=== PATIENT | male | born 1955 | race Caucasian/White ===

== ENCOUNTER 2019-08-05 16:24 | Outpatient (CLI) | payer OTHER, SELFPAY | END 2019-08-05 16:25 | disposition home or self-care (01) | LOC: CHSLAB 16:28 | PROVIDERS: PCP Family Medicine; Visit Provider Specialist | DX: L73.9 Follicular disorder, unspecified (principal) | CPT/HCPCS: 87070; 87075; 87205 ==

== ENCOUNTER 2019-09-23 14:37 | Outpatient (CLI) | payer OTHER, SELFPAY | END 2019-09-23 14:38 | disposition home or self-care (01) | LOC: CHSLAB 14:40 | PROVIDERS: PCP Family Medicine; Visit Provider Specialist | DX: D22.5 Melanocytic nevi of trunk (principal) | CPT/HCPCS: 88305; 88342 ==

== ENCOUNTER → 2020-07-27 02:14 | Outpatient (CLI) | payer OTHER, SELFPAY ==
[2020-07-27 22:46] LABS: SARS-CoV-2 RNA PCR Negative
== END ==
PROVIDERS: PCP Family Medicine; Visit Provider Internal Medicine Gastroenterology
DX: Z01.812 Encounter for preprocedural laboratory examination (principal); Z20.822 Contact with and (suspected) exposure to COVID-19
CPT/HCPCS: C9803; U0003; U0005

== ENCOUNTER 2020-07-30 00:48 | Day surgery (SDC) | payer OTHER, SELFPAY ==
[2020-07-20 08:45] VITALS: BMI 37.2
[2020-07-30 08:03] VITALS: BP 160/89; PULSE 77; RESP 18; TEMP 36.2; O2SAT 98; BMI 47.2
[2020-07-30] MEDS: LACTATED RINGERS 1,000 ML 150 ML IV CONT (08:13)
--- NOTE | 2020-07-30 08:18 | WPDANESEPPF ---
Anes - Initial Pre Proc Eval Procedure: Operation Date: 07/30/20 09:30 Proposed Procedures p Screening Colonoscopy - Tonny Norwood MD Date/Time: 07/30/20 08:18 Surgeon: Tonny Norwood MD Pre Op Diagnosis: Neoplasm Screening, Personal Hx Of Colon Polyps Patient Data Age: 65 Gender: M Height: 6 ft 1 in Weight: 162.3 kg Last Vital Signs Temp 36.2 C L 07/30/20 08:03 Pulse 77 07/30/20 08:03 Resp 18 07/30/20 08:03 BP 160/89 H 07/30/20 08:03 Pulse Ox 98 07/30/20 08:03 Allergies Allergy/AdvReac Type Severity Reaction Status Date / Time Penicillins Allergy Severe RASH, Verified 07/30/20 08:01 SWELLING adhesive Allergy Unknown SKIN RASH/ Verified 07/30/20 08:01 BREAKDOWN bacitracin AdvReac Rash Verified 07/30/20 08:01 [From Neosporin ([id number])] neomycin AdvReac Rash Verified 07/30/20 08:01 [From Neosporin ([id number])] polymyxin B AdvReac Rash Verified 07/30/20 08:01 [From Neosporin ([id number])] Home Medications Medication Instructions Recorded Confirmed Type sertraline 100 mg tablet 150 mg PO DAILY #45 tablet 04/30/19 07/20/20 Rx bupropion HCl 150 mg 24 hr tablet, 300 mg PO QAM tablet 07/09/19 07/20/20 History extended release pravastatin 40 mg tablet 40 mg PO DAILY #90 tablet 05/05/20 07/20/20 Rx sodium,potassium,mag sulfates 17.5 See Rx Instructions PO .COMPLEX 07/02/20 Rx gram-3.13 gram-1.6 gram oral soln #354 ml lisinopril 20 mg tablet 20 mg PO DAILY #90 tablet 07/27/20 07/27/20 Rx Patient hx anesthesia problems: none Family hx anesthesia problems: none PMFSH Past Medical History Medical History Atypical chest pain Benign essential HTN Diverticulosis of colon (without mention of hemorrhage) Hyperlipidemia MDD (major depressive disorder) KERI (obstructive sleep apnea) Family History Family History Mother Family history of lung cancer Social History Social History Smoking status: Never smoker Alcohol intake: current Drinks per week: 6 Substance use: never Substance use type: does not use Living arrangements: with family Gender identity (if verbalized by the patient): Male Spiritual care concerns: No Anes - Eval Final PreProcedure Day of Procedure 07/30/20 08:18 Patient weight: morbidly obese Heart: regular rate and rhythm Lungs: clear to auscultation Airway: Mallampati scale class II Neurological: alert and oriented Last oral intake: >/= 8 hours ASA classification: III Emergent: no Anesthetic plan: proceed Anesthesia type and monitoring: general GIVS and standard monitoring Informed Consent: The patient's anesthetic plan and its attendant risks and benefits were discussed with the patient/family/POA. Questions were solicited and answers provided to the satisfaction of the patient/family/POA.
--- NOTE | 2020-07-30 09:08 | PM.HPGS ---
History of Present Illness History of Present Illness Consent: Risks, benefits, and alternatives have been discussed and questions answered. Patient agrees to proceed with procedure. Chief complaint: Neoplasm Screening, Personal Hx Of Colon Polyps Narrative: Indra Coppola is a 65 year old male with history of colon polyps, no new issues now Review of Systems Constitutional: Constitutional: Denies headache(s) and Denies weakness Eyes: Eyes: Denies blurry vision ENT: Reports Normal hearing present, Denies headache(s) and Denies neck pain Cardiovascular: Cardiovascular: Denies chest pain and Denies dyspnea Respiratory: Respiratory: Denies dyspnea Gastrointestinal: Gastrointestinal: Reports no additional gastrointestinal complaints Genitourinary: Genitourinary: Denies dysuria Musculoskeletal: Musculoskeletal: Denies neck pain Integumentary/Breasts: Skin/Breast: Denies dry skin Neurologic: Reports Normal hearing present, Denies headache(s) and Denies weakness Psychiatric: Psychiatric: Denies anxiety Endocrine: Endocrine: Denies change in body appearance Hematologic/Lymphatic: Hematologic/Lymphatic: Denies easy bleeding Allergic/Immunologic: Allergic/Immunologic: Denies urticaria PMFSH Past Medical History Medical History Atypical chest pain Benign essential HTN Diverticulosis of colon (without mention of hemorrhage) Hyperlipidemia MDD (major depressive disorder) KERI (obstructive sleep apnea) Family History Family History Mother Family history of lung cancer Social History Social History Smoking status: Never smoker Alcohol intake: current Drinks per week: 6 Substance use: never Substance use type: does not use Living arrangements: with family Gender identity (if verbalized by the patient): Male Spiritual care concerns: No Meds Home Medications and Allergies Home Medications Medication Instructions Recorded Confirmed Type sertraline 100 mg tablet 150 mg PO DAILY #45 tablet 04/30/19 07/20/20 Rx bupropion HCl 150 mg 24 hr tablet, 300 mg PO QAM tablet 07/09/19 07/20/20 History extended release pravastatin 40 mg tablet 40 mg PO DAILY #90 tablet 05/05/20 07/20/20 Rx sodium,potassium,mag sulfates 17.5 See Rx Instructions PO .COMPLEX 07/02/20 Rx gram-3.13 gram-1.6 gram oral soln #354 ml lisinopril 20 mg tablet 20 mg PO DAILY #90 tablet 07/27/20 07/27/20 Rx Allergies Allergy/AdvReac Type Severity Reaction Status Date / Time Penicillins Allergy Severe RASH, Verified 07/30/20 08:01 SWELLING adhesive Allergy Unknown SKIN RASH/ Verified 07/30/20 08:01 BREAKDOWN bacitracin AdvReac Rash Verified 07/30/20 08:01 [From Neosporin ([id number])] neomycin AdvReac Rash Verified 07/30/20 08:01 [From Neosporin ([id number])] polymyxin B AdvReac Rash Verified 07/30/20 08:01 [From Neosporin ([id number]-[id number])] Vital Signs Vital Signs - 24 hr 07/30/20 08:03 Temperature 97.2 F L Pulse Rate 77 Respiratory Rate 18 Blood Pressure 160/89 H Pulse Oximetry 98 Exam Const: General: comfortable and no acute distress HENMT: General nose exam: Normal nares present Eyes: General: appearance normal, both eyes and all related structures Neck: Neck: no JVD Resp: Auscultation: clear to auscultation bilaterally Cardio: Rate: regular rate Rhythm: regular rhythm GI: Inspection: non-distended GI Palp: Yes Soft to palpation Skin: General skin exam: normal color Neuro: General: gait normal Speech: normal speech Extrem: General: normal to inspection Psych: Mental Status: mental status grossly normal Assessment and Plan Assessment and plan (1) Colon cancer screening: Code(s): Z12.11 - Encounter for screening for malignant neoplasm of colon
[2020-07-30 09:31] VITALS: BP 126/86; PULSE 66; RESP 19; O2SAT 98
[2020-07-30 09:41] VITALS: BP 129/88; PULSE 76; RESP 19; O2SAT 98
[2020-07-30 09:51] VITALS: BP 139/91; PULSE 64; RESP 13; O2SAT 100
== END 2020-07-30 09:51 | disposition home or self-care (01) ==
PROVIDERS: PCP Family Medicine; Visit Provider Internal Medicine Gastroenterology
PROC: 0DJD8ZZ Inspection of Lower Intestinal Tract, Via Natural or Artificial Opening Endoscopic (ICD-10-PCS; CPT 45378; principal; 2020-07-30 09:30)
DX: Z12.11 Encounter for screening for malignant neoplasm of colon (principal); D12.2 Benign neoplasm of ascending colon; K57.30 Diverticulosis of large intestine without perforation or abscess without bleeding; I10 Essential (primary) hypertension; E78.5 Hyperlipidemia, unspecified; G47.33 Obstructive sleep apnea (adult) (pediatric); F32.9 Major depressive disorder, single episode, unspecified; E66.01 Morbid (severe) obesity due to excess calories; Z68.42 Body mass index [BMI] 45.0-49.9, adult
CPT/HCPCS: 45385; 88305; C9803; J2704; J7120; U0003; U0005

== ENCOUNTER → 2020-11-30 08:24 | Outpatient (CLI) | payer OTHER, SELFPAY ==
--- NOTE | ~2020-11-30 | XR_ITS ---
XR chest 2V DATE: 11/30/2020 08:35 INDICATION: Cough TECHNIQUE: 2 views COMPARISON: 07/13/2017 two-view chest FINDINGS: Normal heart size. There is left upper lobe infiltrate and/atelectasis. There is increased density at the left suprahila r area which may represent infiltrate; left hilar mass or adenopathy is not excluded. Continued radio graphic follow-up to ensure complete clearing is recommended There is some patchy infiltrate or atelectasis in the left lower lung and to a lesser extent the righ t lung base. No pleural effusion or pulmonary vascular congestion or pneumothorax. Degenerative spurring of the thoracic spine. No suspicious osteolytic or osteoblastic lesions are anatoly ntified. IMPRESSION: Left upper and lower lung infiltrate and/or atelectasis and lesser right basilar atelecta sis. Continued radiographic follow-up is recommended to ensure complete clearing. Reviewed, dictated and finalized at location B. IMPRESSION: Left upper and lower lung infiltrate and/or atelectasis and lesser right basilar atelectasis. Continued radiographic follow-up is recommended to e nsure complete clearing.
== END ==
PROVIDERS: PCP Family Medicine; Visit Provider Physician Assistant
DX: R05 Cough (principal); R91.8 Other nonspecific abnormal finding of lung field
CPT/HCPCS: 71046

== ENCOUNTER → 2020-12-10 12:27 | Outpatient (CLI) | payer OTHER, SELFPAY ==
--- NOTE | ~2020-12-10 | CT_ITS ---
EXAMINATION: CT diagnostic chest wo con EXAM DATE: 12/10/2020 13:12 INDICATION: R05 - Cough, abnormal cxr . TECHNIQUE: Spiral CT of the chest without contrast. Axial, coronal and sagittal images of the chest were reviewed. Coronal maximum intensity pixel images of chest reviewed. The dose-length product ( DLP) for this examination was 790.53 mGy-cm. The exposure was tailored according to patient size (au to mA exposure control), and iterative reconstruction (ASIR) was used as additional dose reduction te chnique. Correlation is made to chest x-ray 11/30/2020. FINDINGS: There is right suprahilar mass measuring up to about 3.7 cm. This is occluding the left up per lobe bronchus. Consider pulmonary consult for bronchoscopy. There are no pleural or pericardial effusions. There is no mediastinal, hilar or axillary lymphadenopathy. There is no pneumothorax . Heart normal in size. There is mild coronary arterial calcification, arterial sclerosis. There is 2.5 cm left adrenal gland nodule statistically most likely adenoma. Metastatic disease not exclud able. Cholecystectomy clips. Moderate-sized mid thoracic endplate osteophytes. IMPRESSION: 1. Left suprahilar mass, occluding the upper lobe bronchus likely bronchogenic carcinoma; pulmonary consult for bronchoscopy, biopsy. 2. Indeterminate left adrenal lesion, statistically most likely adenoma. Reviewed, dictated and finalized at location A.
== END ==
PROVIDERS: PCP Family Medicine; Visit Provider Physician Assistant
DX: R05 Cough (principal); R93.89 Abnormal findings on diagnostic imaging of other specified body structures; N28.89 Other specified disorders of kidney and ureter
CPT/HCPCS: 71250

== ENCOUNTER → 2021-01-01 01:08 | Outpatient (CLI) | payer OTHER, SELFPAY ==
[2021-01-01 17:52] LABS: SARS-CoV-2 RNA PCR Negative
== END ==
PROVIDERS: PCP Family Medicine; Visit Provider Internal Medicine Pulmonary Disease
DX: Z01.812 Encounter for preprocedural laboratory examination (principal); Z20.822 Contact with and (suspected) exposure to COVID-19
CPT/HCPCS: C9803; U0003; U0005

== ENCOUNTER 2021-01-04 02:03 | Day surgery (SDC) | payer OTHER, SELFPAY ==
[2020-12-27 14:01] VITALS: BMI 41.6
[2021-01-04] VITALS (8 sets, daily range): BP systolic 117–188; BP diastolic 74–107; PULSE 72–98; RESP 18–30; TEMP 36.2; O2SAT 94–98
--- NOTE | ~2021-01-04 | XR_ITS ---
EXAMINATION: XR fl bronchoscopy w imaging DATE: 01/04/2021 14:20 INDICATION: Bronchoscopy with left upper lobe biopsy TECHNIQUE: Single fluoroscopic image of the left mid and upper chest was obtained during procedure pe rformed by Dr. Stoner. Radiologist was not present for the imaging or procedure. The amount of fluoro scopy time used during this procedure was 0.6 minutes. COMPARISON: CT dated 12/10/2020 FINDINGS: Oblique band of likely postobstructive atelectasis/or pneumonia peripheral to a left perihilar mass w hich is suspicious for primary bronchogenic carcinoma. No evident pneumothorax. Visualized portion of the mediastinum and left heart border are unremarkable. IMPRESSION: 1. Fluoroscopy utilized for bronchoscopy with left hilar mass concerning for primary bronchogenic car cinoma. See procedure note for further detail. Reviewed, dictated and finalized at location A. IMPRESSION: 1. Fluoroscopy utilized for bronchoscopy with left hilar mass concerning for pr imary bronchogenic carcinoma. See procedure note for further detail.
--- NOTE | ~2021-01-04 | XR_ITS ---
EXAMINATION: XR chest 1V portable DATE: 01/04/2021 14:20 INDICATION: Post bronchoscopy TECHNIQUE: frontal view of the chest was obtained. COMPARISON: Chest radiograph dated 11/30/[address] dated 12/10/2020 FINDINGS: Unchanged opacities in the left upper lung zone extending obliquely from a left perihilar mass. No pl eural effusion or pneumothorax. The cardiomediastinal silhouette is normal. Mild thoracic spondylosis . IMPRESSION: 1. Opacities in the left upper lung zone extending to a left perihilar mass suspicious for primary br onchogenic carcinoma and atelectasis and/or pneumonia. 2. No pneumothorax, pleural effusion or other acute cardiopulmonary disease post bronchoscopy. Reviewed, dictated and finalized at location A. IMPRESSION: 1. Opacities in the left upper lung zone extending to a left perihilar mass stone picious for primary bronchogenic carcinoma and atelectasis and/or pneumonia. 2. No pneumothorax, pleural effusion or other acute cardiopulmonary disease pos t bronchoscopy.
[2021-01-04 11:56] LABS: Basophils Absolute Auto 0.1 K/mm3 (0.0-0.1); Basophils Percent Auto 1.4 % (0.2-1.2); Eosinophils Absolute Auto 0.3 K/mm3 (0-0.3); Eosinophils Percent Auto 3.6 % (0-4.4); Hematocrit 54.6 % (42.0-52.0); Hemoglobin 17.8 g/dL (14.0-18.0); Immature Granulocyte Absolute 0.16 K/mm3 (0.00-0.031); Lymphocytes Absolute Auto 1.39 K/mm3 (0.9-3.2); Lymphocytes Percent Auto 17.2 % (18.3-44.2); Mean Corpuscular HGB Conc 32.6 g/dl (32-36); Mean Corpuscular Hemoglobin 28.1 pg (26-34); Mean Corpuscular Volume 86.3 fl (80-100); Mean Platelet Volume 8.5 fl (7.4-10.4); Monocytes Absolute Auto 0.7 K/mm3 (0.1-0.6); Monocytes Percent Auto 8.7 % (2.6-8.5); Neutrophils Absolute Auto 5.4 K/mm3 (1.3-6.7); Neutrophils Percent Auto 67.1 % (45.5-73.1); Platelet Count Result 309 k/mm3 (150-375); Red Blood Count 6.33 M/mm3 (4.6-6.20); Red Cell Distribution Width 14.8 % (11.5-14.5); White Blood Count 8.1 K/mm3 (4.5-10.0)
[2021-01-04] MEDS: LACTATED RINGERS 1,000 ML 150 ML IV CONT (11:56)
[2021-01-04 12:17] LABS: INR 0.9; Partial Thromboplastin Time 32.2 SECONDS (22.3-36.8); Prothrombin Time 12.1 Seconds (11.1-14.7)
--- NOTE | 2021-01-04 12:39 | WPDANESEPPF ---
Anes - Initial Pre Proc Eval Procedure: Operation Date: 01/04/21 13:15 Proposed Procedures p Flexible Bronchoscopy w Fluoro - Francesco Stoner MD Date/Time: 01/04/21 12:39 Surgeon: Francesco Stoner MD Pre Op Diagnosis: Left Lung Mass Patient Data Age: 65 Gender: M Height: 1.85 m Weight: 141.2 kg Last Vital Signs Temp 97.1 F L 01/04/21 11:53 Pulse 90 01/04/21 11:53 Resp 20 01/04/21 11:53 BP 173/89 H 01/04/21 11:53 Pulse Ox 98 01/04/21 11:53 Allergies Allergy/AdvReac Type Severity Reaction Status Date / Time Penicillins Allergy Severe RASH, Verified 01/04/21 11:52 SWELLING adhesive Allergy Unknown SKIN RASH/ Verified 01/04/21 11:52 BREAKDOWN bacitracin AdvReac Rash Verified 01/04/21 11:52 [From Neosporin ([id number])] neomycin AdvReac Rash Verified 01/04/21 11:52 [From Neosporin ([id number])] polymyxin B AdvReac Rash Verified 01/04/21 11:52 [From Neosporin ([id number])] Home Medications Medication Instructions Recorded Confirmed Type sertraline 100 mg tablet 150 mg PO DAILY #45 tablet 04/30/19 12/27/20 Rx bupropion HCl 150 mg 24 hr tablet, 300 mg PO QAM tablet 07/09/19 12/27/20 History extended release pravastatin 40 mg tablet 40 mg PO DAILY #90 tablet 05/05/20 12/27/20 Rx testosterone cypionate 200 mg/mL 200 mg IM .COMPLEX #10 ml 10/07/20 12/27/20 Rx intramuscular oil amlodipine 5 mg tablet 5 mg PO DAILY #30 tablet 11/30/20 12/27/20 Rx lisinopril 40 mg tablet 40 mg PO DAILY #90 tablet 12/03/20 12/27/20 Rx doxycycline hyclate 100 mg tablet 100 mg PO BID #14 tablet 12/28/20 01/04/21 Rx Laboratory Tests 01/04/21 01/04/21 01/04/21 11:43 11:43 11:43 WBC 8.1 K/mm3 K/mm3 (4.5-10.0) RBC 6.33 M/mm3 H M/mm3 (4.6-6.20) Hgb 17.8 g/dL g/dL (14.0-18.0) Hct 54.6 % H % (42.0-52.0) MCV 86.3 fl fl (80-100) MCH 28.1 pg pg (26-34) MCHC 32.6 g/dl g/dl (32-36) RDW 14.8 % H % (11.5-14.5) Plt Count 309 k/mm3 k/mm3 (150-375) MPV 8.5 fl fl (7.4-10.4) Immature Gran % (Auto) 2.0 % H % (0-0.5) Neut % (Auto) 67.1 % % (45.5-73.1) Lymph % (Auto) 17.2 % L % (18.3-44.2) [place] % (Auto) 8.7 % H % (2.6-8.5) Eos % (Auto) 3.6 % % (0-4.4) Baso % (Auto) 1.4 % H % (0.2-1.2) Lymph # (Auto) 1.39 K/mm3 K/mm3 (0.9-3.2) [place] # (Auto) 0.7 K/mm3 H K/mm3 (0.1-0.6) Eos # (Auto) 0.3 K/mm3 K/mm3 (0-0.3) Baso # (Auto) 0.1 K/mm3 K/mm3 (0.0-0.1) Abs Immat Gran (auto) 0.16 K/mm3 H K/mm3 (0.00-0.031) Absolute Neuts (auto) 5.4 K/mm3 K/mm3 (1.3-6.7) Absolute Nucleated RBC 0.0 K/mm3 K/mm3 (0.0-0.012) Nucleated RBC % 0.0 % % (0.0-0.2) PT 12.1 Seconds Seconds (11.1-14.7) INR 0.9 APTT 32.2 SECONDS SECONDS (22.3-36.8) Sodium Pending Potassium Pending Chloride Pending Carbon Dioxide Pending Anion Gap Pending BUN Pending Creatinine Pending Estim Creat Clear Calc Pending Estimated GFR Pending Glucose Pending Calcium Pending Total Bilirubin Pending AST Pending ALT Pending Alkaline Phosphatase Pending Total Protein Pending Albumin Pending Patient hx anesthesia problems: none Family hx anesthesia problems: none PMFSH Past Medical History Medical History (Reviewed 12/22/20 @ 15:01 by Jovita Jackson [facility]) Atypical chest pain Benign essential HTN Colon cancer screening Diverticulosis of colon (without mention of hemorrhage) Hyperlipidemia MDD (major depressive disorder) KERI (obstructive sleep apnea) Family History Family History (Reviewed 12/22/20
[2021-01-04 12:45] LABS: Alanine Aminotransferase 42 U/L (4-50); Albumin Level 4.7 g/dL (3.5-5.1); Alkaline Phosphatase 81 U/L (38-126); Anion Gap 9 mmol/L (8-16); Aspartate Amino Transferase 40 U/L (17-59); Bilirubin,Total 0.8 mg/dL (0.2-1.3); Blood Urea Nitrogen 19 mg/dL (9-20); Calcium 9.6 mg/dL (8.4-10.2); Carbon Dioxide 25 mmol/L (22-30); Chloride 105 mmol/L (98-107); Estimated CRCL calculation 107 ml/min; Estimated Glomerular Filt Rate > 60; Glucose 113 mg/dL (65-110); Potassium 4.2 mmol/L (3.4-5.0); Sodium 139 mmol/L (137-145)
--- NOTE | 2021-01-04 13:11 | PM.IMHP ---
H&P: HPI History of Present Illness Date/Time: 01/04/21 13:11 Chief Complaint: bronchoscopy for left lung mass Narrative: 01/04/21 Patient presents today for bronchoscopy for left lung mass. Since office visit on 12/22/2020 patient has had some cough and congestion and was started on doxycycline 100 mg p.o. b.i.d. by his primary physician. Patient currently denies fever, chills, rigors, phlegm production. Patient does notice some audible wheezes. Risks and benefits of bronchoscopy were explained again explained to the patient and he is willing to proceed. 12/22/20 this is a new encounter for a left lung mass Patient saw Ines Mon on 11/30/20 and her note states Pt w/ HTN, HLD, IFG, low testosterone, LUKAS, KERI not on CPAP presents for 6 week f/u . Taking medications as prescribed, denies S/E. Pt is following w/ psych. At last appt, BP was slightly elevated. Has not been checking home BP. Pt had previously lost weight. During COVID-19 pandemic, pt gained weight back. Pt had been off CPAP therapy > 1 year. Pt is not interested in repeating HSS at this time. C/o cough x 2 months. At last appt, pt was treated w/ Z-son and Medrol dose son w/o improvement. Endorses chronic nasal/sinus congestion and PND. Endorses new body aches (bilateral hand stiffness). Denies SOB, fever, fatigue, loss of taste or smell, no known COVID-19 exposure. Pt has not been vaccinated for COVID-19. Pt had COVID-19 Jan 2019. Pt has not tried any OTC medications. A chest x-ray was obtained on 11/30/2020 that demonstrated a left upper and mid lung zone infiltrate. A CT scan of the chest was obtained on 12/10 that showed a left suprahilar mass at 3.7 cm. There were no mediastinal hilar OR or axillary lymphadenopathy there is a 2.5 cm left adrenal gland nodule. Patient was referred to Pulmonary. Today the patient tells me that At the time of his chest x-ray he was having some wheezing and rattling in cough but denied fever, chills, sweats or rigors. He denied chest pain at the time. He was given a Z-Son and Medrol taper which provided him minimal relief. He Currentlyhas had a cough that has gotten worse over the last 6 months. He coughs throughout the day 1-2 times an hour for the most part it is dry. Patient denies hemoptysis. Patient does state that sometimes he coughs after drinking fluids. 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 patient has no weight loss. Patient is a never tobacco smoker. Patient was exposed to secondhand smoke through both parents. Patient currently has no secondhand smoke exposure. 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 Of note patient has obstructive sleep apnea diagnosed within a sleep study and prescribe CPAP which she used briefly. Patient lost 100 lb and his tells me that his symptoms went away. He has not used CPAP for 3 or 4 years. Patient has regained the 100 lb and he does have some apneic episodes in which the needs to wake him up. The patient states he is not interested in performing another sleep study and would not wear CPAP mask. Family history is remarkable for a mother who of metastatic lung cancer at the age of 64. She was a tobacco user. Review of Systems Review of Systems: All systems reviewed & are unremarkable except as noted in HPI and below Eyes: Eyes: Reports no additional eye complaints ENT: Reports system reviewed and no additional complaints, except as documented Cardiovascular: Cardiovascular: Reports no additional cardiovascular complaints Respiratory: Respiratory: Reports no additional respiratory complain
[2021-01-04] MEDS: SODIUM CHLORIDE 0.9% IV 500 ML BAG 15 ML IRRIGATION (13:51)
== END 2021-01-04 15:25 | disposition home or self-care (01) ==
PROVIDERS: PCP Family Medicine; Visit Provider Internal Medicine Pulmonary Disease
PROC: BB1DZZZ Fluoroscopy of Upper Airways (ICD-10-PCS; CPT 31624; principal; 2021-01-04 13:00)
DX: R91.8 Other nonspecific abnormal finding of lung field (principal); R05 Cough; I10 Essential (primary) hypertension; E78.5 Hyperlipidemia, unspecified; F32.9 Major depressive disorder, single episode, unspecified; K57.30 Diverticulosis of large intestine without perforation or abscess without bleeding; G47.33 Obstructive sleep apnea (adult) (pediatric); Z77.22 Contact with and (suspected) exposure to environmental tobacco smoke (acute) (chronic)
CPT/HCPCS: 31625; 31623; 36415; 71045; 80053; 85025; 85610; 85730; 88104; 88108; 88160; 88184; 88305; 88312; C9803; J0330; J1100; J2405; J2704; J3010; J7040; J7120; U0003; U0005

== ENCOUNTER → 2021-01-27 15:33 | Outpatient (CLI) | payer OTHER, SELFPAY ==
--- NOTE | ~2021-01-27 | XR_ITS ---
XR chest 2V 01/27/2021 16:11 Indication: Cough and shortness of breath Procedure: The chest Comparison: 01/04/2021 Findings: Persistent left perihilar and left upper lobe airspace disease. Heart size normal. Left hil ar mass reidentified. No pleural effusion or pneumothorax. No acute osseous abnormality. Impression: 1: Left hilar mass, suspicious for bronchogenic carcinoma. Left upper lobe airspace disease may repre sent postobstructive atelectasis or pneumonia. Reviewed, dictated and finalized at location A. Impression: 1: Left hilar mass, suspicious for bronchogenic carcinoma. Left upper lobe airs pace disease may represent postobstructive atelectasis or pneumonia.
== END ==
PROVIDERS: PCP Family Medicine; Visit Provider Physician Assistant
DX: R91.8 Other nonspecific abnormal finding of lung field (principal)
CPT/HCPCS: 71046

== ENCOUNTER 2021-03-03 23:19 | Inpatient (IN) | payer OTHER, SELFPAY ==
--- NOTE | ~2021-03-03 | CT_ITS ---
EXAMINATION: CTA chest PE protocol DATE: 03/04/2021 11:41 INDICATION: New onset of atrial flutter. Pneumothorax. TECHNIQUE: Computed tomography angiography (CTA) of the chest was performed with 100 mL Omnipaque-350 intravenous contrast timed to evaluate the pulmonary arteries. Coronal maximum intensity projection 3D-reconstructions were created by the technologist. Automated exposure control and iterative reconst ruction technique were employed. Exam dose: 1074.44 mGy-cm total exam DLP. COMPARISON: 03/02/2021 portable AP chest 12/10/2020 CT chest: Left suprahilar mass, including left upper bronchus was noted FINDINGS: Status post partial left lung resection with some residual free air in the left thoracic ca vity and mild left pleural effusion. There are some shoddy nonenlarged hilar and mediastinal lymph nodes. No thoracic aortic aneurysm. Normal heart size. No pericardial effusion. The lungs are clear of consolidation or mass lesion. 2.5 cm left adrenal mass lesion. Diffusion diagnosis includes left adrenal metastasis an adenoma. Status post cholecystectomy. No suspicious osteolytic or osteosclerotic lesions. 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 Diffuse idiopathic skeletal hyperostosis. IMPRESSION: Status post left lung resection for cancer Mild left postoperative pneumothorax Mild left pleural fluid Reviewed, dictated and finalized at [facility]. Reviewed, dictated and finalized at [facility].
--- NOTE | ~2021-03-03 | XR_ITS ---
XR chest 1V portable DATE: 03/04/2021 00:05 INDICATION: Chest pain, palpitations. Lung surgery 2 weeks ago. TECHNIQUE: Portable upright AP chest on 03/04/2021 at 0003 hours COMPARISON: 01/27/2021 PA and lateral views FINDINGS: There is a small left pneumothorax. There is volume loss of the left lung since 01/27/2021, likely due to partial left lung resection. Ther e is associated mild elevation left leaf of the diaphragm. The right lung appears essentially clear. No pleural effusions are noted. No right pneumothorax. Heart size appears within normal range. IMPRESSION: Small left pneumothorax Reviewed, dictated and finalized at [facility]. IMPRESSION: Small left pneumothorax
--- NOTE | ~2021-03-03 | CT_ITS ---
EXAMINATION: CT abdomen pelvis wo con DATE: 03/05/2021 11:53 INDICATION: Epigastric pain TECHNIQUE: Computed tomography (CT) of the abdomen and pelvis was performed without intravenous contr ast. The dose-length product was 1627.29 mGy-cm. Automated exposure control and iterative reconstruct ion technique were employed. COMPARISON: CT dated 03/03/2017 FINDINGS: Small left pleural effusion. Heart size normal. There is mild atherosclerosis of the aorta. No significant pericardial effusion. Stable 2.7 cm low-density left adrenal mass, likely benign kendell cleopatra. Status post cholecystectomy. The liver, spleen, pancreas, right adrenal gland are unremarkable. There are bilateral renal cysts, largest anteriorly in the right kidney measuring 7 5 cm. Nonobstruct lois bowel gas pattern. Colonic diverticulosis without evidence for diverticulitis. There is mild arth ritis of the hips. No acute osseous abnormality. No free air or free fluid. No abnormal pelvic masses or fluid collections. Colonic diverticulosis without evidence for diverticulitis. There is moderate lumbar spondylosis. IMPRESSION: 1. No acute abdominal abnormality. 2: Stable left adrenal mass, likely benign adenoma. 3: New small left pleural effusion. Reviewed, dictated and finalized at location [facility].
[2021-03-03 23:21] VITALS: BP 134/87; PULSE 77; RESP 18; TEMP 35.9; O2SAT 98
--- NOTE | 2021-03-03 23:26 | ECG_ITS ---
Measurements Intervals [place] Rate: 156 P: DE: 0 QRS: 3 QRSD: 102 T: 139 QT: 256 QTc: 413 Interpretive Statements ATRIAL FLUTTER/TACHYCARDIA WITH RAPID VENTRICULAR RESPONSE LEFT VENTRICULAR HYPERTROPHY AND ST-T CHANGE ABNORMAL ECG Electronically Signed On 03-04-2021 7:44:35 CDT by Noe Miller D.O.
--- NOTE | 2021-03-03 23:28 | PC.NURSE ---
requesting to be notified when pt goes back to ED room. Patricia [phone].
[2021-03-03] MEDS: ADENOSINE IV SOLN 6 MG/2 ML VIAL IV PUSH (23:48)
--- NOTE | 2021-03-03 23:53 | PC.NURSE ---
EDP at bedside. Pt attached to pvc monitor and defibrillator pads. Pt given 6mg adenosine with 1 L NS running wide open. HR dropped to 30s in aflutter then returned to 160s. Pt tolerated well.
--- NOTE | 2021-03-03 23:57 | ED.GENADULT ---
HPI - General Adult General Chief complaint: Arrhythmia/Palpitations Stated complaint: heart racing, cold clammy sweat Time Seen by Provider: 03/03/21 23:37 History of Present Illness HPI narrative: Patient 65-year-old gentleman who presents to emergency department with chief complaint of palpitations and shortness of breath. Patient reports that he recently had a pneumonectomy for lung cancer at [place] patient states that he has been doing quite well and then today started having shortness of breath had some chest tightness and felt as though his heart was racing extremely fast. Patient reports no prior history of A. fib or history of SVT. Patient reports symptoms are worsened with ambulation and improved with rest. The patient states that the palpitations continue to matter what. Related Data Home Medications Medication Instructions Recorded Confirmed oxycodone 03/04/21 Allergies Allergy/AdvReac Type Severity Reaction Status Date / Time Penicillins Allergy Severe RASH, Verified 03/04/21 00:05 SWELLING adhesive Allergy Unknown SKIN RASH/ Verified 03/04/21 00:05 BREAKDOWN bacitracin AdvReac Rash Verified 03/04/21 00:05 [From Neosporin ([id number])] neomycin AdvReac Rash Verified 03/04/21 00:05 [From Neosporin ([id number])] polymyxin B AdvReac Rash Verified 03/04/21 00:05 [From Neosporin ([id number])] Review of Systems Review of Systems: A 10 system review of systems was completed on the patient and is negative except for what is stated in the HPI. Nursing and ancillary documentation was reviewed. [facility], [facility] Past Medical History Medical History Atypical chest pain Benign essential HTN Colon cancer screening Diverticulosis of colon (without mention of hemorrhage) Hyperlipidemia MDD (major depressive disorder) KERI (obstructive sleep apnea) Family History Family History Mother Family history of lung cancer Social History Social History Second hand tobacco smoke exposure: No Alcohol intake: current Drinks per week: 6 Substance use: never Substance use type: does not use Gender identity (if verbalized by the patient): Male Sexual Orientation (if Verbalized by the Patient): Straight or Heterosexual Spiritual care concerns: No Exam Narrative: GENERAL: Well-appearing, well-nourished, and in no acute distress. HEAD: Normocephalic, atraumatic. EYES: PERRLA and EOMI. ENT: Nares clear, no rhinorrhea or epistaxis. Mucous membranes moist. NECK: Supple. CHEST: Clear to auscultation. No respiratory distress. HEART: Tachycardic rate and rhythm. No murmur heard. Normal peripheral pulses. ABDOMEN: Soft, nontender, nondistended, normal active bowel sounds. EXTREMITIES: Normal range of motion. No edema. SKIN: Warm, dry, no rash. NEURO: No focal deficits. Alert and oriented x3. PSYCH: Normal mood and affect. Course Course Emergency Course: EKG shows a narrow complex tachycardia with a rate of 136 The patient's EKG showed a flutter versus SVT given the rate most likely a flutter but a trial was attempted with 6 mg of adenosine the patient's heart rate slowed down and the flutter waves were visible. The patient was then started on a Cardizem drip for rate control Vital Signs Vital signs: Vital Signs Temperature 35.9 C L 03/03/21 23:21 Pulse Rate 77 03/03/21 23:21 Respiratory Rate 18 03/03/21 23:21 Blood Pressure 134/87 03/03/21 23:21 Pulse Oximetry 98 03/03/21 23:21 Temperature 35.9 C L 03/03/21 23:21 Pulse Rate 110 H 03/04/21 00:19 Respiratory Rate 18 03/04/21 00:19 Blood Pressure 130/71 03/04/21 00:19 Pulse Oximetry 100 03/04/21 00:19 Medical Decision Making Vital Signs Vital Signs: Vital Signs Temperature 35.9 C L
[2021-03-04] VITALS (23 sets, daily range): BP systolic 115–130; BP diastolic 71–98; PULSE 74–160; RESP 16–22; TEMP 36.2–36.9; O2SAT 96–100; BMI 41.3
--- NOTE | 2021-03-04 | ECHO_ITS ---
Patient Info Name: Indra Coppola Age: 65 years : 1955 Gender: Male Ht: 72 in Wt: 304 lbs BSA: 2.71 m2 HR: 88 bpm BP: 126 / 73 mmHg Heart Rhythm: Sinus Rhythm Technical Quality: Fair Exam Date: 03/04/2021 2:35 PM Exam Location: [facility] Pulmonary Exam Room: 209 Patient Status: Inpatient Admit Date: 03/04/2021 Staff Ordering Physician: Aletha Montague PA-C Public Finance Specialist: Adrienne Padilla RDCS Attending Provider: Aletha Montague PA-C Referring Physician: Clari BURKS; Exam Type: CA echo doppler color flow Study Info Indications - new onset aflutter Complete two-dimensional, color flow and Doppler transthoracic echocardiogram is performed. Summary 1. Complete two-dimensional, color flow and Doppler transthoracic echocardiogram is performed. 2. Left ventricular chamber dimension is normal. 3. Left ventricular systolic function is normal, estimated at 45-50%. 4. No significant valvular dysfunction. 5. Normal atrial dimensions. Left Ventricle Left ventricular chamber dimension is normal. Left ventricular systolic function is normal, estimated at 45-50%. There is mild concentric increased left ventricular wall thickness. The left ventricular diastolic function is normal. Right Ventricle Right ventricular chamber dimension is normal. Left Atria Left atrial chamber dimension is normal. Right Atria Right atrial chamber dimension is normal. Aortic Valve The aortic valve is trileaflet. There is mild aortic valve sclerosis. Pulmonic Valve The pulmonic valve is normal. There is trace pulmonic regurgitation. Mitral Valve The mitral valve has normal leaflets. Tricuspid Valve The tricuspid valve leaflets are normal. Pericardium/Pleural The pericardium appears normal. Aorta The aortic root size at the sinus of Valsalva is normal. Left Ventricular Outflow Tract Name Value Normal LVOT 2D LVOT Diameter 2.1 cm LVOT Doppler LVOT Peak Gradient 2 mmHg LVOT Mean Gradient 1 mmHg LVOT VTI 11 cm LVOT VTI/AV VTI Ratio 0.8 LVOT Stroke Volume 41 ml LVOT CO 10.1 l/min LVOT CI 3.7 l/min/m2 Pulmonic Valve Name Value Normal PV Doppler PV Peak Gradient 2 mmHg Mitral Valve Name Value Normal MV Doppler MV Decel [place] 477 cm/s2 MV PHT 39 ms MV Area (PHT) 5.
[2021-03-04] MEDS: SODIUM CHLORIDE 0.9% IV 1,000 ML 999 ML (00:06)
[2021-03-04] MEDS: dilTIAZem HCl INJ 25 MG/5 ML VIAL 20 MG IV PUSH (00:06)
--- NOTE | 2021-03-04 00:08 | PC.NURSE ---
Called lab and spoke to Johana to add on PTT, MG, BNP, TSH
[2021-03-04 00:11] LABS: Basophils Absolute Auto 0.2 K/mm3 (0.0-0.1); Basophils Percent Auto 1.2 % (0.2-1.2); Eosinophils Absolute Auto 0.6 K/mm3 (0-0.3); Eosinophils Percent Auto 3.9 % (0-4.4); Hematocrit 46.6 % (42.0-52.0); Hemoglobin 15.1 g/dL (14.0-18.0); Immature Granulocyte Absolute 0.59 K/mm3 (0.00-0.031); Immature Granulocyte Percent A 3.7 % (0-0.5); Lymphocytes Absolute Auto 2.29 K/mm3 (0.9-3.2); Lymphocytes Percent Auto 14.3 % (18.3-44.2); Mean Corpuscular HGB Conc 32.4 g/dl (32-36); Mean Corpuscular Hemoglobin 28.6 pg (26-34); Mean Corpuscular Volume 88.3 fl (80-100); Mean Platelet Volume 8.1 fl (7.4-10.4); Monocytes Absolute Auto 1.1 K/mm3 (0.1-0.6); Monocytes Percent Auto 6.6 % (2.6-8.5); Neutrophils Absolute Auto 11.2 K/mm3 (1.3-6.7); Neutrophils Percent Auto 70.3 % (45.5-73.1); Platelet Count Result 415 k/mm3 (150-375); Red Blood Count 5.28 M/mm3 (4.6-6.20)
[2021-03-04 00:15] LABS: INR 0.9; Prothrombin Time 12.1 Seconds (11.1-14.7)
[2021-03-04 00:16] LABS: Alanine Aminotransferase 54 U/L (4-50); Albumin Level 4.7 g/dL (3.5-5.1); Alkaline Phosphatase 133 U/L (38-126); Anion Gap 10 mmol/L (8-16); Aspartate Amino Transferase 35 U/L (17-59); Bilirubin,Total 0.5 mg/dL (0.2-1.3); Blood Urea Nitrogen 25 mg/dL (9-20); Calcium 9.5 mg/dL (8.4-10.2); Carbon Dioxide 29 mmol/L (22-30); Chloride 102 mmol/L (98-107); Estimated CRCL calculation 116 ml/min; Estimated Glomerular Filt Rate > 60; Glucose 116 mg/dL (65-110); Potassium 4.3 mmol/L (3.4-5.0); Sodium 141 mmol/L (137-145)
[2021-03-04 00:30] LABS: Troponin I < 0.012 ng/mL (0.000-0.034)
[2021-03-04] MEDS: oxyCODONE HCL (*CRX) 5 MG TAB IR PO (01:01)
--- NOTE | 2021-03-04 01:46 | PC.NURSE ---
pt sent to floor with diltiazem drip running
[2021-03-04 04:48] LABS: Partial Thromboplastin Time 29.7 SECONDS (22.3-36.8)
--- NOTE | 2021-03-04 05:08 | PC.NURSE ---
Report received by BRIAN Diaz with the ED department at 0145.
--- NOTE | 2021-03-04 05:09 | ADMGEN ---
This patient, Indra Coppola, was admitted to IMU Room 209-01 at 0155 from the ED. Patient/family oriented to hospital policies and general routines including ID bracelet, bed and alarms, visiting hours, pain management, procedures, bathroom and other care routines, personal items, smoking policy, room service/diet, and visiting hours. Information on how to activate the Rapid Response Team has been discussed. Patient/Family are encouraged to report perceived risks to care and to ask questions if they do not understand what they are told or what they should do.
[2021-03-04 05:23] LABS: Magnesium 2.2 mg/dL (1.6-2.3); NT Pro B Type Natriuretic Pept 79 pg/mL (5-100)
[2021-03-04 05:33] LABS: Troponin I < 0.012 ng/mL (0.000-0.034)
[2021-03-04 06:52] LABS: Troponin I < 0.012 ng/mL (0.000-0.034)
--- NOTE | 2021-03-04 09:17 | PM.IMHP ---
H&P: HPI History of Present Illness Date/Time: 03/04/21 09:17 Chief Complaint: elevated HR Narrative: Pt is a 65-year-old male with a past medical history of hypertension, hyperlipidemia and lung cancer with recent left upper lung resection who presented emergency room for elevated heart rate. Patient states last night he was feeling off and weird and also felt clammy so he decided take his blood pressure and noticed his heart rate was 170. He had no chest pain, palpitations, jaw pain, arm pain or shortness of breath during this time. He did feel little short of breath walking to the ER but he states he has been having shortness of breath since his surgery. He has no history of heart disease whatsoever. He has been active since his surgery and has been walking and has no history of blood clots. He does have some flank pain and upper back pain where his incision site is but is overall doing okay. He denies shortness of breath, headache, blurred vision, nausea, vomiting, fevers, chills, diarrhea, constipation or dysuria. Review of Systems Review of Systems: All systems reviewed & are unremarkable except as noted in HPI and below PMFSH Past Medical History Medical History Atypical chest pain Benign essential HTN Colon cancer screening Diverticulosis of colon (without mention of hemorrhage) Hyperlipidemia MDD (major depressive disorder) KERI (obstructive sleep apnea) Surgical History Surgical History (Updated 03/04/21 @ 10:38 by Aletha Montague PA-C) History of bilateral knee replacement History of cholecystectomy History of fundoplication Family History Family History Mother Family history of lung cancer Bone cancer Grandparent Stomach cancer Lung cancer Father Cirrhosis Social History Social History (Updated 03/04/21 @ 10:39 by Aletha Montague PA-C) Social History: the patient is a lifelong nonsmoker. He socially drinks and averages maybe 6 beers a week. 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 He would like to be a full code and designates his , Patricia, as his surrogate decision maker Smoking status: Never smoker Second hand tobacco smoke exposure: Yes Alcohol intake: never Drinks per week: 6 Substance use: never Substance use type: does not use Gender identity (if verbalized by the patient): Male Sexual Orientation (if Verbalized by the Patient): Straight or Heterosexual Spiritual care concerns: No Meds Home Medications and Allergies Home Medications Medication Instructions Recorded Confirmed Type testosterone cypionate 200 mg/mL 200 mg IM .COMPLEX #10 ml 10/07/20 03/04/21 Rx intramuscular oil amlodipine 5 mg tablet 5 mg PO DAILY #30 tablet 11/30/20 03/04/21 Rx lisinopril 40 mg tablet 40 mg PO DAILY #90 tablet 12/03/20 03/04/21 Rx oxycodone 5 mg PO BID PRN 03/04/21 03/04/21 History pravastatin 40 mg PO HS 03/04/21 03/04/21 History Allergies Allergy/AdvReac Type Severity Reaction Status Date / Time Penicillins Allergy Severe RASH, Verified 03/04/21 00:05 SWELLING adhesive Allergy Unknown SKIN RASH/ Verified 03/04/21 00:05 BREAKDOWN bacitracin AdvReac Rash Verified 03/04/21 00:05 [From Neosporin ([id number])] neomycin AdvReac Rash Verified 03/04/21 00:05 [From Neosporin ([id number])] polymyxin B AdvReac Rash Verified 03/04/21 00:05 [From Neosporin ([id number])] Vital Signs Vital Signs - 24 hr 03/03/21 23:21 03/04/21 00:07 03/04/21 00:19 Temperature 96.6 F L Pulse Rate 77 160 H 110 H Respiratory Rate 18 18 Blood Pressure 134/87 123/90 130/71 Pulse Oximetry 98 100 03/04/21 01:43 03/04/21 01:55 03/04/21 02:00 Temperature 97.3 F L Pulse Rate 106 H 131 H 131 H Respiratory Rate 22 H 18 Blood Pressure 117/98 H 121/89 Pulse Oximetry 100 98 03/04/21 04:00 03/04/21 06:00
--- NOTE | 2021-03-04 10:25 | PM.CNGS ---
Assessment and Plan Assessment and plan (1) Pneumothorax: Code(s): J93.9 - Pneumothorax, unspecified Status: Acute Assessment and Plan: small on CXR, currently good sats on RA, will get CT for further evaluation (2) Lung cancer: Code(s): C34.90 - Malignant neoplasm of unspecified part of unspecified bronchus or lung Status: Acute Assessment and Plan: s/p SATISH rsxn, doing well postop, f/u c thoracic surgery at [facility] History of Present Illness Consult details Consult date: 03/04/21 Reason for consult: other (left pneumothorax) Requesting physician: Aletha Montague PA-C Narrative: Pt is a 65 y/o M presenting to ED overnight c/o chest palpitations, dizziness, mild SOB. Pt found to be in A flutter c RVR and that has since been corrected. Pt had SATISH lobectomy for lung cancer on 02/18 at [facility]. Pt reports everything has gone well and he was dc'd 02/21. Pt reports some mild SOB yesterday c episode but that has since resolved. Pt found to have small L sided PTX on CXR. Review of Systems Constitutional: Constitutional: Denies anorexia, Denies body ache(s), Denies chills, Denies fatigue, Denies fever(s), Denies headache(s), Denies lethargy, Denies malaise, Denies night sweats, Denies poor appetite, Denies weakness, Denies weight gain and Denies weight loss Eyes: Eyes: Reports no additional eye complaints ENT: Reports system reviewed and no additional complaints, except as documented Cardiovascular: Cardiovascular: Reports as per HPI, Denies chest pain, Reports chest pain with activity, Reports rapid heart rate, Denies pedal edema, Reports irregular heart rhythm, Reports palpitations, Reports dyspnea and Denies dyspnea on exertion Respiratory: Respiratory: Reports as per HPI, Denies cough, Denies hemoptysis and Reports dyspnea Gastrointestinal: Gastrointestinal: Reports no additional gastrointestinal complaints Genitourinary: Genitourinary: Reports no additional male genitourinary complaints Musculoskeletal: Musculoskeletal: Reports no additional musculoskeletal complaints Integumentary/Breasts: Skin/Breast: Reports system reviewed and no additional complaints, except as docu Neurologic: Reports system reviewed and no additional complaints, except as documented Psychiatric: Psychiatric: Reports no additional psychiatric complaints Endocrine: Endocrine: Reports no additional endocrine complaints Hematologic/Lymphatic: Hematologic/Lymphatic: Reports no additional hematologic/lymphatic complaints Allergic/Immunologic: Allergic/Immunologic: Reports no additional allergic/immunologic complaints PMF Past Medical History Medical History Atypical chest pain Benign essential HTN Colon cancer screening Diverticulosis of colon (without mention of hemorrhage) Hyperlipidemia MDD (major depressive disorder) KERI (obstructive sleep apnea) Family History Family History Mother Family history of lung cancer Bone cancer Grandparent Stomach cancer Lung cancer Father Cirrhosis Social History Social History Smoking status: Never smoker Second hand tobacco smoke exposure: Yes Alcohol intake: never Drinks per week: 6 Substance use: never Substance use type: does not use Gender identity (if verbalized by the patient): Male Sexual Orientation (if Verbalized by the Patient): Straight or Heterosexual Spiritual care concerns: No Meds Home Medications and Allergies Home Medications Medication Instructions Recorded Confirmed Type testosterone cypionate 200 mg/mL 200 mg IM .COMPLEX #10 ml 10/07/20 03/04/21 Rx intramuscular oil amlodipine 5 mg tablet 5 mg PO DAILY #30 tablet 11/30/20 03/04/21 Rx lisinopril 40 mg tablet 40 mg PO DAILY #90 tablet 12/03/20 03/04/21 Rx oxycodone 5 mg PO BID PRN 03/04/21 03/04/21 History p
[2021-03-04] MEDS: lisinopriL 20 MG TABLET 40 MG PO (12:16)
[2021-03-04] MEDS: ENOXAPARIN 40 MG/0.4 ML SYRINGE SUB-Q (12:17)
[2021-03-04] MEDS: ENOXAPARIN 100 MG/ML SYRINGE SUB-Q (12:18)
--- NOTE | 2021-03-04 13:37 | PM.CNCAR ---
Assessment and Plan Additional Plan 65-year-old man with: Atrial flutter with rapid ventricular response. In the absence of any other cardiac history 1 would presume this is a complication of his recent thoracic surgery. His rate has been better controlled with the diltiazem but he persists in atrial flutter. I believe we can conclude with a history that he provides that this is a new onset arrhythmia and we should make an attempt to restore sinus rhythm. I am going to start him on sotalol orally and transition is anticoagulation to apixaban. I will of course review the echocardiographic findings when they are available and we will either medically or electrically converted back to sinus rhythm. If there are no other structural cardiac problems then the need for antiarrhythmic therapy will likely be short term in this setting. Thank you for asking me to see this gentleman in consultation and participate in his care. Francesco Musa MD [facility] History of Present Illness History of Present Illness Consult date/time: 03/04/21 13:37 Reason For Visit: New onset a flutter w/ rapid ventricular response Narrative: This is a 65-year-old man I am seeing at the request of the hospitalist this afternoon because of atrial flutter. This is a very nice man who is not known to have any cardiac problems prior to this. He has a background of hypertension and some dyslipidemia. Very interestingly he recently was found to have a carcinoma of the left upper lobe since he is a lifelong nonsmoker this was obviously not expected. He states he was recently experiencing symptoms with some nocturnal wheezing and we had a chest x-ray done by his primary physician and because of abnormalities which then led to a CT and a biopsy. He was referred to a thoracic surgeon at [facility] who performed a left upper lobectomy on February 18. I have not looked in the chart from [facility] I do not have any specific information as to the histopathology. He did reasonably well and states he was discharged on the 4th postop day. He does have a small left pneumothorax which was apparently present at when he was at [facility] and is still present on x-ray today. He came to [facility] last evening because he suddenly felt unwell last night with the sense of extreme weakness and diaphoresis. When he laid down in bed when this happened he felt his heart was beating rapidly. His who he states is a retired nurse examined him and took his vital signs and found his pulse to be very fast. She has been checking his vital signs daily since the recent operation a couple of weeks ago and a tachyarrhythmias have not been detected up until last night. He is not having any other symptomatology and he came to the emergency room was found to be in atrial flutter with 2-1 conduction and a heart rate of about 150. He was of course placed on intravenous diltiazem which has provided some rate control and has been anticoagulated with Lovenox subcutaneously. He states he has never been known to have any cardiac problems of any kind prior to this. An echocardiogram has been requested but has yet to be performed. In this setting I am seeing him in consultation in the IMU. Review of Systems Constitutional: Constitutional: Reports lethargy Eyes: Eyes: Reports no additional eye complaints ENT: Reports system reviewed and no additional complaints, except as documented Cardiovascular: Cardiovascular: Reports as per HPI Respiratory: Comments: Incisional chest discomfort Musculoskeletal: Musculoskeletal: Reports no additional musculoskeletal complaints Integumentary/Breasts: Skin/Breast: Reports system reviewed and no additional complaints, except as docu Neurologic: Reports system reviewed and no additional complaints, except as documented Endocrine: Endocrine: Reports no additional endocrine complaints Hematologic/Lymphatic: Hematologic/Lymphatic: Reports no additional hematologic/lymphatic complaints
[2021-03-04] MEDS: SOTALOL HCL 80 MG TABLET PO ×2 (14:08→21:12)
--- NOTE | 2021-03-04 16:15 | ECG_ITS ---
Measurements Intervals [place] Rate: 97 P: PA: 0 QRS: 12 QRSD: 80 T: 52 QT: 387 QTc: 493 Interpretive Statements ATRIAL FLUTTER/TACHYCARDIA VOLTAGE CRITERIA FOR LVH CONSIDER INFERIOR INFARCT, AGE INDETERMINATE ABNORMAL ECG Electronically Signed On 03-04-2021 14:40:29 CDT by Noe Miller D.O.
[2021-03-04] MEDS: APIXABAN 5 MG TABLET PO (21:12)
[2021-03-04] MEDS: PRAVASTATIN SODIUM 20 MG TABLET 40 MG PO (21:12)
[2021-03-04] MEDS: CALCIUM CARBONATE (TUMS) 500 MG (200 MG ELEMENTAL) PO (22:56)
--- NOTE | 2021-03-04 23:12 | ECG_ITS ---
Measurements Intervals [place] Rate: 79 P: 23 [place]: 199 QRS: 24 QRSD: 90 T: 54 QT: 409 QTc: 469 Interpretive Statements SINUS RHYTHM VENTRICULAR BIGEMINY POSSIBLE LEFT ATRIAL ENLARGEMENT ABNORMAL ECG Electronically Signed On 03-05-2021 7:31:37 CDT by Noe Miller D.O.
[2021-03-05] VITALS (16 sets, daily range): BP systolic 97–142; BP diastolic 45–85; PULSE 47–159; RESP 18–22; TEMP 36.1–37.4; O2SAT 95–99
[2021-03-05] MEDS: oxyCODONE HCL (*CRX) 5 MG TAB IR PO (04:20)
--- NOTE | 2021-03-05 08:43 | ECG_ITS ---
Measurements Intervals [place] Rate: 87 P: [place]: 0 QRS: 3 QRSD: 101 T: 50 QT: 393 QTc: 475 Interpretive Statements ATRIAL FLUTTER/TACHYCARDIA LEFT VENTRICULAR HYPERTROPHY AND ST-T CHANGE BASELINE ARTIFACT- V2-V3 ABNORMAL ECG Electronically Signed On 03-05-2021 17:41:50 CDT by Noe Miller D.O.
[2021-03-05] MEDS: APIXABAN 5 MG TABLET PO ×2 (08:45→21:23)
[2021-03-05] MEDS: SOTALOL HCL 80 MG TABLET PO ×2 (08:45→21:23)
[2021-03-05] MEDS: lisinopriL 20 MG TABLET 40 MG PO (08:45)
[2021-03-05 09:24] LABS: Basophils Absolute Auto 0.1 K/mm3 (0.0-0.1); Eosinophils Absolute Auto 0.5 K/mm3 (0-0.3); Eosinophils Percent Auto 3.8 % (0-4.4); Hematocrit 48.4 % (42.0-52.0); Hemoglobin 15.8 g/dL (14.0-18.0); Immature Granulocyte Absolute 0.29 K/mm3 (0.00-0.031); Immature Granulocyte Percent A 2.1 % (0-0.5); Lymphocytes Absolute Auto 1.76 K/mm3 (0.9-3.2); Lymphocytes Percent Auto 12.6 % (18.3-44.2); Mean Corpuscular HGB Conc 32.6 g/dl (32-36); Mean Corpuscular Hemoglobin 28.4 pg (26-34); Mean Corpuscular Volume 86.9 fl (80-100); Mean Platelet Volume 8.4 fl (7.4-10.4); Monocytes Percent Auto 6.8 % (2.6-8.5); Neutrophils Absolute Auto 10.3 K/mm3 (1.3-6.7); Neutrophils Percent Auto 73.7 % (45.5-73.1); Platelet Count Result 423 k/mm3 (150-375); Red Blood Count 5.57 M/mm3 (4.6-6.20); Red Cell Distribution Width 14.8 % (11.5-14.5)
[2021-03-05 09:39] LABS: Alanine Aminotransferase 55 U/L (4-50); Albumin Level 4.5 g/dL (3.5-5.1); Alkaline Phosphatase 121 U/L (38-126); Anion Gap 6 mmol/L (8-16); Aspartate Amino Transferase 33 U/L (17-59); Blood Urea Nitrogen 21 mg/dL (9-20); Calcium 9.4 mg/dL (8.4-10.2); Carbon Dioxide 31 mmol/L (22-30); Chloride 102 mmol/L (98-107); Estimated CRCL calculation 93 ml/min; Estimated Glomerular Filt Rate > 60; Glucose 125 mg/dL (65-110); Potassium 4.5 mmol/L (3.4-5.0); Sodium 139 mmol/L (137-145)
--- NOTE | 2021-03-05 09:46 | PM.IMPN ---
Progress Note: A&P Assessment and Plan (1) Atrial flutter with rapid ventricular response: Code(s): I48.92 - Unspecified atrial flutter Status: Acute Assessment and Plan: New onset a flutter now with sotalol loading and Eliquis -patient continues to be in A flutter and ranges from 150-84 -echo shows reduced EF 45-50% with no valvular dysfunction - troponins negative x3, BNP normal, TSH normal - etiology is likely from recent surgery or pneumothorax. No signs of infection. No PE noted on CTA. May need further cardiac workup (could be done outpatient) for new systolic dysfunction. (2) Systolic dysfunction without heart failure: Code(s): I51.89 - Other ill-defined heart diseases Status: Acute Assessment and Plan: Noted on echo -no signs of heart failure on exam or on labs -will eventually need full cardiac workup, defer to cardiology (3) Pneumothorax: Code(s): J93.9 - Pneumothorax, unspecified Status: Acute Assessment and Plan: Noted on chest x-ray and appears to be small and asymptomatic -spoke with the surgery team at [facility] who states that after his surgery he had a follow-up x-ray which showed this small pneumothorax. No plans for treatment as the patient is doing well and they are going to follow up with him outpatient. (4) Epigastric pain: Code(s): R10.13 - Epigastric pain Status: Acute Assessment and Plan: Patient has been having worsening abdominal pain for the last 2 weeks with gas and synthetic soil blocks pulper stools (coelho colored) -will start Protonix, could be gastritis due to surgery -obtain CT abdomen pelvis and lipase to check pancreatic function -patient has a history of fundoplication surgery in the distant past (5) Leukocytosis: Code(s): D72.829 - Elevated white blood cell count, unspecified Status: Acute Assessment and Plan: likely reactionary, no signs or symptoms of infection -check UA (6) Lung cancer: Code(s): C34.90 - Malignant neoplasm of unspecified part of unspecified bronchus or lung Status: Acute Assessment and Plan: Resected by Dr. German Lucero at [facility] 02/18/21 -I spoke with their office and let them know about the patient's hospitalization (7) Benign essential HTN: Code(s): I10 - Essential (primary) hypertension Status: Acute Assessment and Plan: Last bp 135/85 -continue lisinopril -hold amlodipine for now Time Spent With Patient Time with patient: 25 - 35 minutes Subjective Date/time seen: 03/05/21 09:46 Interval history: Pt is a 65-year-old male here for new onset a flutter. Patient was seen today and his only complaint is epigastric pain. He describes this as a burning pain consistent with heartburn. He said this has been going on for the last 2 weeks after surgery. He has had this in the past and had surgery for prevention. He denies dark stool. He has some epigastric tenderness but it is mostly just burning pain occasionally no matter what he eats. He tried Tums last night which did not improve. He usually takes Pepcid at home which has not really been helping lately. He says the epigastric pain is better when he releases gas. Last bowel movement was yesterday. He denies chest pain, shortness of breath, nausea or vomiting. Review of Systems Review of Systems: All systems reviewed & are unremarkable except as noted in HPI and below Exam Narrative: General:Well developed well nourished patient HEENT: Normocephalic, atraumatic, PERRL, Sclerae anicteric, oral mucosa moist. Neck: Supple Resp: CTA bilaterally. No wheezing or rhonchi or conversational dyspnea. Incision site to the left back clean and dry without dehiscence, discharge or erythema. Heart: RRR with no murmurs. Telemetry shows a flutter with a rate of 107. He was up to 150 this morning Abd: Soft, obese and nontender. No pain to palpation. Positive bowel so
--- NOTE | 2021-03-05 10:22 | PM.PNGS ---
Progress Note: A&P Assessment and Plan (1) Pneumothorax: Code(s): J93.9 - Pneumothorax, unspecified Status: Acute Assessment and Plan: likely postoperative change, no acute surgical issues, will sign off, f/u c thoracic surgery at [facility] as scheduled Subjective Subjective Date/Time Seen: 03/05/21 10:22 feels good, no further SOB, wants to go home Review of Systems Review of Systems: All systems reviewed & are unremarkable except as noted in HPI and below Exam Const: General: cooperative, comfortable and no acute distress Nutritional Appearance: obese Orientation/consciousness: patient oriented x3 Chest: Chest palpation & inspection: normal inspection of the chest Other: incision healing well Resp: Effort & Inspection: normal respiratory effort Auscultation: diminished lung sounds Cardio: Rate: tachycardic Rhythm: regular rhythm GI: Inspection: normal to inspection GI Palp: Yes abdominal tenderness, Yes Soft to palpation, No Tenderness to palpation present (GI), No Guarding due to palpation present (GI) and No Rigid due to palpation Objective Data Vital Signs Vital Signs: Vital Signs - 24 hr 03/04/21 12:00 03/04/21 12:50 03/04/21 14:00 Temperature 36.3 C L Pulse Rate 83 84 84 Respiratory Rate 20 Blood Pressure 126/73 Pulse Oximetry 98 03/04/21 14:08 03/04/21 16:00 03/04/21 17:34 Temperature 36.2 C L Pulse Rate 84 82 84 Respiratory Rate 20 Blood Pressure 118/75 Pulse Oximetry 97 03/04/21 18:00 03/04/21 19:39 03/04/21 20:00 Temperature 36.9 C Pulse Rate 83 82 74 Respiratory Rate 16 16 Blood Pressure 117/74 Pulse Oximetry 97 97 03/04/21 21:08 03/04/21 21:12 03/04/21 22:00 Temperature Pulse Rate 80 108 H 77 Respiratory Rate 17 Blood Pressure Pulse Oximetry 98 03/05/21 00:00 03/05/21 02:00 03/05/21 04:00 Temperature 36.1 C L 36.6 C Pulse Rate 86 80 81 Respiratory Rate 20 22 H Blood Pressure 104/53 L 117/61 Pulse Oximetry 95 98 03/05/21 06:00 03/05/21 08:00 03/05/21 08:45 Temperature 36.3 C L Pulse Rate 91 57 L 93 Respiratory Rate 18 Blood Pressure 135/85 Pulse Oximetry 96 Intake/Output Intake/Output: Intake & Output 03/02/21 03/03/21 03/04/21 03/05/21 23:59 23:59 23:59 23:59 Intake Total 1590 720 Output Total 2255 200 Balance -665 520 Meds/Results Medications: Active Medications Generic Name Dose Route Start Last Admin Trade Name Freq PRN Reason Stop Dose Admin Apixaban 5 mg 03/04/21 21:00 03/05/21 08:45 Apixaban 5 Mg Tablet PO 5 mg Q12HR RODRIGUE Administration Calcium Carbonate 200 mg 03/04/21 22:43 03/04/21 22:56 Calcium Carbonate (Tums) 500 Mg (200 Mg Elemental) PO 200 mg Q6H PRN Administration Indigestion Lisinopril 40 mg 03/04/21 09:10 03/05/21 08:45 Lisinopril 20 Mg Tablet PO 40 mg DAILY RODRIGUE Administration Oxycodone HCl 5 mg 03/04/21 09:10 03/05/21 04:20 Oxycodone Hcl (*Crx) 5 Mg Tab Ir PO 5 mg BID PRN Administration Post surgical pain Pantoprazole Sodium 40 mg 03/05/21 09:45 Pantoprazole Sodium Iv 40 Mg Vial IV PUSH QAM RODRIGUE Pravastatin Sodium 40 mg 03/04/21 21:00 03/04/21 21:12 Pravastatin Sodium 20 Mg Tablet PO 40 mg HS RODRIGUE Administration Sotalol HCl 80 mg 03/04/21 13:40 03/05/21 08:45 Sotalol Hcl 80 Mg Tablet PO 80 mg Q12HR RODRIGUE Administration Radiology Results: ITS Impressions Chest X-Ray 03/04/21 05:59 IMPRESSION: Small left pneumothorax Chest CTA 03/04/21 11:45 IMPRESSION: Status post left lung resection for cancer Mild left postoperative pneumothorax Mild left pleural fluid Labs Labs: Laboratory Results - last 24 hr 03/05/21 03/05/21 09:01 09:01 WBC 14.0 H RBC 5.57 Hgb 15.8 Hct 48.4 MCV 86.9 MCH 28.4 MCHC 32.6 RDW 14.8 H Plt Count 423 H MPV 8.4 Immature Gran % (Auto) 2.1 H Neut % (Auto) 73.7 H Lymph % (Auto) 12
--- NOTE | 2021-03-05 10:45 | ECG_ITS ---
Measurements Intervals [place] Rate: 82 P: [place]: 0 QRS: 30 QRSD: 101 T: -89 QT: 456 QTc: 535 Interpretive Statements ATRIAL FLUTTER/TACHYCARDIA ABNORMAL ECG Electronically Signed On 03-05-2021 17:44:04 CDT by Noe Miller D.O.
[2021-03-05 11:03] LABS: Lipase 73 U/L (23-300)
[2021-03-05] MEDS: PANTOPRAZOLE SODIUM IV 40 MG VIAL IV PUSH (11:20)
[2021-03-05 12:17] LABS: Add Urine Microscopic? NO; Appearance Urine Clear (Clear); Bilirubin Urine Negative (Negative); Blood Urine Negative (Negative); Color Urine Yellow (Yellow); Glucose Urine UA Negative (Negative); Ketones Urine Negative (Negative); Leukocyte Esterase Ur Negative LEU/UL (Negative); Nitrate Urine Negative (Negative); Protein Urine Negative (Negative); Specific Grav Ur 1.018 (1.001-1.035); Urobilinogen Urine Negative mg/dL (<2.0)
--- NOTE | 2021-03-05 12:22 | PM.PNCARD ---
Progress Note: A&P Additional Plan 65-year-old man with: Postop atrial flutter rate is well controlled with sotalol he is anticoagulated with apixaban. My plan would be to perform DC cardioversion tomorrow if AF persists. Patient understands this and is agreeable. We will make arrangements for this tomorrow morning. Obviously he may medically convert to sinus rhythm between now and then. Francesco Musa MD [facility] Subjective Date/time seen: Date of service: 03/05/21 12:22 Interval history: Follow-up visit in this 65-year-old man with: Atrial flutter with RVR presumably postop AF following recent thoracotomy and left upper lobe resection for carcinoma. Patient has no previous cardiac history. Has been placed on sotalol and apixaban. As of this morning he has received 3 doses of sotalol persist in a flutter with well-controlled heart rate. Otherwise asymptomatic of his arrhythmia at this time. 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 Exam Const: General: comfortable and no acute distress Other: Pleasant white male overweight no distress of any kind HENMT: Mouth: Yes moist mucous membranes Eyes: Sclera: sclerae normal Pupils: Equal, round and reactive pupils present Neck: Neck: supple and no JVD Resp: Effort & Inspection: normal respiratory effort Auscultation: clear to auscultation bilaterally Other: Recent left thoracotomy scar noted Cardio: Rate: regular rate Rhythm: abnormal rhythm GI: GI Palp: Yes Soft to palpation Auscultation: normal bowel sounds Skin: General skin exam: normal color Neuro: Cognition (Neuro): normal cognition Extrem: General: normal to inspection Objective Data Vital Signs Vital Signs: Vital Signs - 24 hr 03/04/21 12:50 03/04/21 14:00 03/04/21 14:08 Temperature 36.3 C L Pulse Rate 84 84 84 Respiratory Rate 20 Blood Pressure 126/73 Pulse Oximetry 98 03/04/21 16:00 03/04/21 17:34 03/04/21 18:00 Temperature 36.2 C L Pulse Rate 82 84 83 Respiratory Rate 20 Blood Pressure 118/75 Pulse Oximetry 97 03/04/21 19:39 03/04/21 20:00 03/04/21 21:08 Temperature 36.9 C Pulse Rate 82 74 80 Respiratory Rate 16 16 17 Blood Pressure 117/74 Pulse Oximetry 97 97 98 03/04/21 21:12 03/04/21 22:00 03/05/21 00:00 Temperature 36.1 C L Pulse Rate 108 H 77 86 Respiratory Rate 20 Blood Pressure 104/53 L Pulse Oximetry 95 03/05/21 02:00 03/05/21 04:00 03/05/21 06:00 Temperature 36.6 C Pulse Rate 80 81 91 Respiratory Rate 22 H Blood Pressure 117/61 Pulse Oximetry 98 03/05/21 08:00 03/05/21 08:45 03/05/21 10:00 Temperature 36.3 C L Pulse Rate 83 93 78 Respiratory Rate 18 Blood Pressure 135/85 Pulse Oximetry 96 Intake/Output Intake/Output: Intake & Output 03/02/21 03/03/21 03/04/21 03/05/21 23:59 23:59 23:59 23:59 Intake Total 1590 1440 Output Total 2255 200 Balance -665 1240 Meds/Results Medications: Active Medications Generic Name Dose Route Start Last Admin Trade Name Freq PRN Reason Stop Dose Admin Apixaban 5 mg 03/04/21 21:00 03/05/21 08:45 Apixaban 5 Mg Tablet PO 5 mg Q12HR RODRIGUE Administration Calcium Carbonate 200 mg 03/04/21 22:43 03/04/21 22:56 Calcium Carbonate (Tums) 500 Mg (200 Mg Elemental) PO 200 mg Q6H PRN Administration Indigestion Lisinopril 40 mg 03/04/21 09:10 03/05/21 08:45 Lisinopril 20 Mg Tablet PO 40 mg DAILY RODRIGUE Administration Oxycodone HCl 5 mg 03/04/21 09:10 03/05/21 04:20 Oxycodone Hcl (*Crx) 5 Mg Tab Ir PO 5 mg BID PRN Administration Post surgical pain Pantoprazole Sodium 40 mg 03/05/21 09:45 03/05/21 11:20 Pantoprazole Sodium Iv 40 Mg Vial IV PUSH 40 mg QAM RODRIGUE Administration Pravastatin Sodium 40 mg 03/04/21 21:00 03/04/21 21:12 Prava
[2021-03-05] MEDS: CALCIUM CARBONATE (TUMS) 500 MG (200 MG ELEMENTAL) PO (17:52)
[2021-03-05] MEDS: PRAVASTATIN SODIUM 20 MG TABLET 40 MG PO (21:23)
--- NOTE | 2021-03-05 23:38 | ECG_ITS ---
Measurements Intervals [place] Rate: 81 P: [place]: 0 QRS: 9 QRSD: 88 T: 46 QT: 435 QTc: 506 Interpretive Statements ATRIAL FLUTTER LEFT VENTRICULAR HYPERTROPHY CONSIDER INFERIOR INFARCT, AGE INDETERMINATE ABNORMAL ECG Electronically Signed On 03-08-2021 13:01:32 CDT by Noe Miller D.O.
[2021-03-06] VITALS (13 sets, daily range): BP systolic 104–115; BP diastolic 62–81; PULSE 82–112; RESP 16–24; TEMP 36.2–37.1; O2SAT 96–100
[2021-03-06] MEDS: oxyCODONE HCL (*CRX) 5 MG TAB IR PO (03:52)
[2021-03-06 04:55] LABS: Hematocrit 47.5 % (42.0-52.0); Hemoglobin 15.6 g/dL (14.0-18.0); Mean Corpuscular HGB Conc 32.8 g/dl (32-36); Mean Corpuscular Hemoglobin 29.2 pg (26-34); Mean Platelet Volume 8.4 fl (7.4-10.4); Platelet Count Result 379 k/mm3 (150-375); Red Blood Count 5.34 M/mm3 (4.6-6.20)
[2021-03-06 05:12] LABS: Anion Gap 7 mmol/L (8-16); Blood Urea Nitrogen 25 mg/dL (9-20); Carbon Dioxide 30 mmol/L (22-30); Chloride 101 mmol/L (98-107); Estimated CRCL calculation 103 ml/min; Estimated Glomerular Filt Rate > 60; Glucose 141 mg/dL (65-110); Potassium 4.4 mmol/L (3.4-5.0); Sodium 138 mmol/L (137-145)
[2021-03-06 05:49] LABS: Hemoglobin A1C 6.7 % (<5.7)
[2021-03-06] MEDS: lisinopriL 20 MG TABLET 40 MG PO (08:07)
[2021-03-06] MEDS: PANTOPRAZOLE SODIUM IV 40 MG VIAL IV PUSH (08:08)
[2021-03-06] MEDS: SOTALOL HCL 80 MG TABLET PO (08:08)
[2021-03-06] MEDS: APIXABAN 5 MG TABLET PO (08:08)
--- NOTE | 2021-03-06 10:00 | ECG_ITS ---
Measurements Intervals [place] Rate: 84 P: [place]: 0 QRS: 6 QRSD: 105 T: 57 QT: 433 QTc: 513 Interpretive Statements ATRIAL FLUTTER/TACHYCARDIA LEFT VENTRICULAR HYPERTROPHY AND ST-T CHANGE ABNORMAL ECG Electronically Signed On 03-06-2021 14:33:05 CDT by Noe Miller D.O.
--- NOTE | 2021-03-06 10:50 | WPDMODSED ---
Moderate Sedation Note-Pt Data Patient Data Diagnosis: Atrial flutter felt the postop phenomenon following recent thoracotomy Present Complaint: No complain Procedure to be performed/Plan: DC cardioversion Allergies Allergy/AdvReac Type Severity Reaction Status Date / Time Penicillins Allergy Severe RASH, Verified 03/04/21 00:05 SWELLING adhesive Allergy Unknown SKIN RASH/ Verified 03/04/21 00:05 BREAKDOWN bacitracin AdvReac Rash Verified 03/04/21 00:05 [From Neosporin ([id number])] neomycin AdvReac Rash Verified 03/04/21 00:05 [From Neosporin ([id number])] polymyxin B AdvReac Rash Verified 03/04/21 00:05 [From Neosporin ([id number])] Home Medications Medication Instructions Recorded Confirmed Type testosterone cypionate 200 mg/mL 200 mg IM .COMPLEX #10 ml 10/07/20 03/04/21 Rx intramuscular oil amlodipine 5 mg tablet 5 mg PO DAILY #30 tablet 11/30/20 03/04/21 Rx lisinopril 40 mg tablet 40 mg PO DAILY #90 tablet 12/03/20 03/04/21 Rx oxycodone 5 mg PO BID PRN 03/04/21 03/04/21 History pravastatin 40 mg PO HS 03/04/21 03/04/21 History Current Medications: Active Medications Apixaban (Apixaban 5 Mg Tablet) 5 mg PO Q12HR [facility] Last Admin: 03/06/21 08:08 Dose: 5 mg Documented by: Calcium Carbonate (Calcium Carbonate (Tums) 500 Mg (200 Mg Elemental)) 200 mg PO Q6H PRN PRN Reason: Indigestion Last Admin: 03/05/21 17:52 Dose: 200 mg Documented by: Lisinopril (Lisinopril 20 Mg Tablet) 40 mg PO DAILY [facility] Last Admin: 03/06/21 08:07 Dose: 40 mg Documented by: Oxycodone HCl (Oxycodone Hcl (*Crx) 5 Mg Tab Ir) 5 mg PO BID PRN PRN Reason: Post surgical pain Last Admin: 03/06/21 03:52 Dose: 5 mg Documented by: Pantoprazole Sodium (Pantoprazole Sodium Iv 40 Mg Vial) 40 mg IV PUSH QAM [facility] Last Admin: 03/06/21 08:08 Dose: 40 mg Documented by: Pravastatin Sodium (Pravastatin Sodium 20 Mg Tablet) 40 mg PO HS [facility] Last Admin: 03/05/21 21:23 Dose: 40 mg Documented by: Sotalol HCl (Sotalol Hcl 80 Mg Tablet) 80 mg PO Q12HR [facility] Last Admin: 03/06/21 08:08 Dose: 80 mg Documented by: Corinna Capps (Corinna Génesis 40 Pads) 1 pad TOPICAL PRN PRN PRN Reason: Perineal Discomfort Sedation/Anesthesia: No previous sedation/anesthesia problems (including family history). [facility] Past Medical History Medical History (Updated 03/05/21 @ 09:52 by Aletha Montague PA-C) Atypical chest pain Benign essential HTN Colon cancer screening Diverticulosis of colon (without mention of hemorrhage) Hyperlipidemia MDD (major depressive disorder) KERI (obstructive sleep apnea) Surgical History Surgical History (Updated 03/04/21 @ 10:38 by Aletha Montague PA-C) History of bilateral knee replacement History of cholecystectomy History of fundoplication Family History Family History Mother Family history of lung cancer Bone cancer Grandparent Stomach cancer Lung cancer Father Cirrhosis Social History Social History (Updated 03/04/21 @ 10:39 by Aletha Montague PA-C) Social History: the patient is a lifelong nonsmoker. He socially drinks and averages maybe 6 beers a week. 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 He would like to be a full code and designates his , Patricia, as his surrogate decision maker Smoking status: Never smoker Second hand tobacco smoke exposure: Yes Alcohol intake: never Drinks per week: 6 Substance use: never Substance use type: does not use Gender identity (if verbalized by the patient): Male Sexual Orientation (if Verbalized by the Patient): Straight or Heterosexual Spiritual care concerns: No Mod Sed Physical Exam Physical Exam Pre Procedural Exam: Normal: Nose, Neck, Throat, Airway, Lungs, Heart Size, Heart Rate, Neuro Exam and Extremities and Variation: Appearance (Obese man no apparent distress) and Heart Rhythm (Atrial flutter/controlled response) Hours [facility]
--- NOTE | 2021-03-06 11:06 | WPDCARDPROC ---
Cardiac Cath Procedure Note Date of procedure:: 03/06/21 Performing physician:: Francesco Musa MD Indication:: Persistent atrial flutter Brief clinical history:: This is a 65-year-old man without a history of prior cardiac problems. He recently was hospitalized elsewhere for a left upper lobectomy for carcinoma. He presented to this hospital with palpitations and was in atrial flutter with RVR. He has been anticoagulated and loaded with sotalol. He persistent atrial flutter although with a controlled rate. DC cardioversion has been recommended to attempt to restore sinus rhythm. Procedure Procedure performed:: DC cardioversion Sedation/Medication given:: Intravenous propofol and aliquots total dosage of 70 mg given Estimated blood loss:: No blood loss Procedure note:: Patient was brought to the ICU room 12. Where he was in the postabsorptive state defibrillator patches were placed in the standard position. Defibrillator was turned on synchronized at a setting of 200 joules. He then was sedated with propofol and aliquots which provided excellent sedation a total dosage of 70 mg as mentioned above. He was DC cardioverted with 200 joules in a synchronized fashion x1 shock restoring sinus rhythm with PACs in a pattern of atrial bigeminy. Findings:: As above Conclusion:: Successful uncomplicated DC cardioversion terminating atrial flutter restoring sinus rhythm with atrial ectopic activity in a bigeminal pattern using 200 joules x1 shock. Francesco Musa MD [facility]
--- NOTE | 2021-03-06 11:06 | PC.NURSE ---
Cardioversion done with Dr. Musa. 70mg propofol given for sedation, one shock at 200J converted to NSR with PAC. VSS afterwards
--- NOTE | 2021-03-06 11:10 | PM.PNCARD ---
Progress Note: A&P Additional Plan 65-year-old man with symptomatic atrial flutter. He has been loaded with sotalol and anticoagulated. Because of persistent flutter performed a DC cardioversion a short time ago. He is in sinus rhythm with atrial bigeminy at this time. After recovering from sedation if he remains asymptomatic as he is currently he can be discharged within the next couple of hours. I will arrange for follow-up in my office to ensure that he is maintaining sinus rhythm. Francesco Musa MD [facility] Subjective Date/time seen: 03/06/21 11:10 Interval history: Follow-up visit in this 65-year-old man with: Atrial flutter with RVR presumably postop AF following recent thoracotomy and left upper lobe resection for carcinoma. Patient has no previous cardiac history. Has been placed on sotalol and apixaban. As of this morning he has received 3 doses of sotalol persist in a flutter with well-controlled heart rate. Otherwise asymptomatic of his arrhythmia at this time. 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 Date of service 03/06/2021: Patient doing well was brought to the ICU a short time ago for sedation and cardioversion. He was DC cardioverted with 200 joules into sinus rhythm with PACs in a bigeminal pattern. Patient is asymptomatic now and feels well. Exam Const: General: comfortable and no acute distress HENMT: Mouth: Yes moist mucous membranes Eyes: Sclera: sclerae normal Pupils: Equal, round and reactive pupils present Neck: Neck: supple and no JVD Resp: Effort & Inspection: normal respiratory effort Auscultation: clear to auscultation bilaterally Cardio: Rate: regular rate Rhythm: regular rhythm Other: Frequent ectopic activity in a bigeminal pattern GI: GI Palp: Yes Soft to palpation Auscultation: normal bowel sounds Skin: General skin exam: normal color Neuro: Cognition (Neuro): normal cognition Extrem: General: normal to inspection Objective Data Vital Signs Vital Signs: Vital Signs - 24 hr 03/05/21 12:00 03/05/21 14:00 03/05/21 16:00 Temperature 36.6 C 37.4 C Pulse Rate 47 L 155 H 83 Respiratory Rate 20 18 Blood Pressure 142/67 H 97/45 L Pulse Oximetry 99 98 03/05/21 18:00 03/05/21 19:38 03/05/21 19:59 Temperature 36.1 C L Pulse Rate 159 H 90 90 Respiratory Rate 20 20 Blood Pressure 105/60 Pulse Oximetry 98 98 03/05/21 20:00 03/05/21 21:23 03/05/21 22:00 Temperature Pulse Rate 89 112 H 108 H Respiratory Rate Blood Pressure Pulse Oximetry 03/06/21 00:00 03/06/21 01:59 03/06/21 03:40 Temperature 37.1 C 36.2 C L Pulse Rate 82 82 84 Respiratory Rate 17 22 H Blood Pressure 104/74 115/62 Pulse Oximetry 97 98 03/06/21 03:44 03/06/21 04:00 03/06/21 05:34 Temperature Pulse Rate 84 112 H 83 Respiratory Rate 24 H Blood Pressure Pulse Oximetry 98 03/06/21 06:49 03/06/21 08:08 03/06/21 11:08 Temperature 36.4 C L Pulse Rate 84 111 H 83 Respiratory Rate 20 22 H Blood Pressure 108/81 112/63 Pulse Oximetry 100 97 03/06/21 11:09 Temperature Pulse Rate 83 Respiratory Rate Blood Pressure Pulse Oximetry Intake/Output Intake/Output: Intake & Output 03/03/21 03/04/21 03/05/21 03/06/21 23:59 23:59 23:59 23:59 Intake Total 1590 2520 300 Output Total 2255 600 440 Balance -665 1920 -140 Meds/Results Medications: Active Medications Generic Name Dose Route Start Last Admin Trade Name Freq PRN Reason Stop Dose Admin Apixaban 5 mg 03/04/21 21:00 03/06/21 08:08 Apixaban 5 Mg Tablet PO 5 mg Q12HR RODRIGUE Administration Calcium Carbonate 200 mg 03/04/21 22:43 03/05/21 17:52 Calcium Carbonate (Tums) 500 Mg (200 Mg Elemental) PO 200 mg Q6H PRN Administration Indigestion Lisinopril 40 mg 03/04/21 09:10 03/06/21
--- NOTE | 2021-03-06 12:51 | ECG_ITS ---
Measurements Intervals [place] Rate: 82 P: [place]: 0 QRS: 1 QRSD: 97 T: 71 QT: 389 QTc: 456 Interpretive Statements ATRIAL FLUTTER LEFT VENTRICULAR HYPERTROPHY AND ST-T CHANGE CONSIDER INFERIOR INFARCT, AGE INDETERMINATE ABNORMAL ECG Electronically Signed On 03-06-2021 14:42:07 CDT by Noe Miller D.O.
--- NOTE | 2021-03-06 15:18 | PM.DS ---
DS: Admitting Diagnosis Discharge Date 03/06/21 Admitting Diagnosis aflutter DS: Discharge Diagnosis Discharge Diagnosis (1) Atrial flutter with rapid ventricular response: Code(s): I48.92 - Unspecified atrial flutter Status: Acute (2) Systolic dysfunction without heart failure: Code(s): I51.89 - Other ill-defined heart diseases Status: Acute Assessment and Plan: Noted on echo 45-50%EF -no signs of heart failure on exam or on labs -will eventually need full cardiac workup, f/u with cardiology (3) Pneumothorax: Code(s): J93.9 - Pneumothorax, unspecified Status: Acute (4) Epigastric pain: Code(s): R10.13 - Epigastric pain Status: Acute Assessment and Plan: Patient has been having worsening abdominal pain for the last 2 weeks with 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 -patient has a history of fundoplication surgery in the distant past (5) Leukocytosis: Code(s): D72.829 - Elevated white blood cell count, unspecified Status: Acute Assessment and Plan: likely reactionary, no signs or symptoms of infection -check UA (6) Lung cancer: Code(s): C34.90 - Malignant neoplasm of unspecified part of unspecified bronchus or lung Status: Acute (7) Benign essential HTN: Code(s): I10 - Essential (primary) hypertension Status: Acute DS: Summary Hospital Course Hospital Course: DOS 03/06/21 Patient is a 65-year-old male with a recent lung resection due to lung cancer 2 weeks prior who presented emergency room for elevated heart rate found to be in a flutter. vitals in the ER were 16.0, hemoglobin 15.1, hematocrit 46.6, platelets 415. BMP relatively normal with exception of BUN 25 and glucose 116. troponins negative x3. BNP normal. EKG showed narrow complex tachycardia 136. adenosine was given in the ER which revealed flutter waves. The patient was initially placed on Cardizem and was admitted to the hospitalist service. cardiology was consulted and started him on sotalol and Xarelto. the patient continued to be in a flutter and he was cardioverted the day of discharge but unfortunately went back and a flutter a few hours after cardioversion. He was asymptomatic with this. I spoke to Cardiology and the patient about treatment options. We did discuss switching him to metoprolol which is generally safer and keeping him overnight to see how he tolerates this. We also discussed discharging him on sotalol which does have rare complications including cardiac arrhythmias and SCD. Patient fully understands and would like to discharge on sotalol and will follow up with an extension service specialist in charge at [facility]. Of note, his chest x-ray on admission showed a small pneumothorax. I called his lung surgeon and spoke with the AP P there who stated that this was seen after his surgery on follow-up and that they are monitoring this. He had no hypoxia or shortness of breath. His A1c was 6.7 and I spoke to him about new onset diabetes. The patient sees Dr. Treviño and would like to try diet control prior to starting medications. I did give him reading material, discussed diabetes, and gave him a glucometer. He also had a Stable left adrenal mass, likely benign adenoma which i recommended he follow up with Dr. Treviño with as well. overall, the day of discharge he was feeling well and wanted to go home. He was educated about the worrisome signs and symptoms to come back to emergency room for and was discharged in stable condition. Time Spent with Patient Time attestation: Total time spent providing and/or coordinating discharge services:45 min Exam Narrative: General:Well developed well nourished patient HEENT: Normocephalic, atraumatic, PERRL, Sclerae anicteric, oral mucosa moist. Neck: Supple Resp: CTA bilaterally. No wheezing or
--- NOTE | 2021-03-06 16:45 | PC.NURSE ---
Patient discharged to home at 1625. Education was provided on medications, monitoring blood sugar, and a diabetic diet. Patient had no further questions at this time.
== END 2021-03-06 16:25 | disposition home or self-care (01) | DRG 309 ==
LOC: ANHED 03-04 00:40 → ANHIMU 03-04 00:57
PROVIDERS: Physician Assistant; Admitting Provider Internal Medicine; Emergency Provider Emergency Medicine; PCP Family Medicine; Visit Provider Internal Medicine
DX: I48.92 Unspecified atrial flutter (principal); C34.90 Malignant neoplasm of unspecified part of unspecified bronchus or lung; J95.811 Postprocedural pneumothorax; I51.89 Other ill-defined heart diseases; R10.13 Epigastric pain; D72.829 Elevated white blood cell count, unspecified; I10 Essential (primary) hypertension; G47.33 Obstructive sleep apnea (adult) (pediatric); K57.90 Diverticulosis of intestine, part unspecified, without perforation or abscess without bleeding; E78.5 Hyperlipidemia, unspecified; D35.02 Benign neoplasm of left adrenal gland; F32.9 Major depressive disorder, single episode, unspecified; Z96.653 Presence of artificial knee joint, bilateral; Z90.49 Acquired absence of other specified parts of digestive tract
CPT/HCPCS: 36415; 71045; 71275; 74176; 80048; 80053; 80076; 81003; 83036; 83690; 83735; 83880; 84443; 84484; 85025; 85027; 85610; 85730; 93005; 93306; 96361; 96366; 96372; 96374; 99285; A9270; C9113; G0378; J0153; J1650; J2704; J7030; Q9967

== ENCOUNTER 2021-03-11 02:49 | Inpatient (IN) | payer OTHER, SELFPAY ==
[2021-03-11] VITALS (13 sets, daily range): BP systolic 119–149; BP diastolic 82–106; PULSE 60–160; RESP 20–36; TEMP 35.8–36.2; O2SAT 95–100; BMI 40.8
--- NOTE | ~2021-03-11 | XR_ITS ---
EXAMINATION: XR chest 1V portable DATE: 03/11/2021 03:33 INDICATION: Chest pain. TECHNIQUE: A single frontal view of the chest was obtained. COMPARISON: Chest single view 03/04/2021, chest CT 03/11/2021 FINDINGS: There is volume loss of left hemithorax from left upper lobectomy. There is a small left hy dropneumothorax. There are airspace opacities at left lung base. The heart size is normal. IMPRESSION: 1. Small left hydropneumothorax, improved from 03/04/2021. 2. Airspace opacities at left lung base, likely atelectasis. Reviewed, dictated and finalized at location A.
--- NOTE | ~2021-03-11 | CT_ITS ---
EXAMINATION: CTA chest PE protocol DATE: 03/11/2021 04:20 INDICATION: Shortness of breath. TECHNIQUE: Computed tomography angiography (CTA) of the chest was performed with 100 mL Omnipaque-350 intravenous contrast timed to evaluate the pulmonary arteries. Coronal maximum intensity projection 3D-reconstructions were created by the technologist. Automated exposure control and iterative reconst ruction technique were employed. The dose-length product was 791.00 mGy-cm. COMPARISON: Chest CT 03/04/2021, CT abdomen and pelvis 03/03/2017 FINDINGS: There are surgical changes of left upper lobectomy. There is a moderate-sized left hydropne umothorax. There is mild atelectasis in left lower lobe. There is mild scarring in paraspinal right l ower lobe. A calcified right lung nodule and calcified right hilar and mediastinal lymph nodes are co nsistent with old granulomatous disease. The heart size is normal. No pericardial effusion. There are coronary artery calcifications. There is a 2.5 cm mass in left adrenal gland, stable from 03/03/2017 , likely an adenoma. There is no pulmonary embolus. There is severe cervical spondylosis and mild tho racic spondylosis. IMPRESSION: 1. Moderate-sized left hydropneumothorax status post left upper lobectomy with decreased pneumothorax component when compared to 03/04/2021. Reviewed, dictated and finalized at location A.
--- NOTE | 2021-03-11 02:54 | ECG_ITS ---
Measurements Intervals [place] Rate: 157 P: [place]: 0 QRS: 13 QRSD: 96 T: 266 QT: 269 QTc: 435 Interpretive Statements ATRIAL FLUTTER/TACHYCARDIA WITH RAPID VENTRICULAR RESPONSE LEFT VENTRICULAR HYPERTROPHY WITH ST-T CHANGE BORDERLINE ST-T WAVE ABNORMALITY- INF/LAT LEADS BASELINE ARTIFACT- II, III, AVF, V4-V6 ABNORMAL ECG Electronically Signed On 03-11-2021 8:41:25 CDT by Noe Miller D.O.
[2021-03-11] MEDS: dilTIAZem HCl INJ 25 MG/5 ML VIAL 20 MG IV PUSH (03:20)
[2021-03-11] MEDS: ASPIRIN 81 MG CHEWABLE TABLET 324 MG PO (03:20)
[2021-03-11 03:21] LABS: Basophils Absolute Auto 0.09 K/mm3 (0.00-0.10); Basophils Percent Auto 0.6 % (0.0-1.0); Eosinophils Absolute Auto 0.58 K/mm3 (0.02-0.50); Eosinophils Percent Auto 3.8 % (1.0-6.0); Hematocrit 44.9 % (40.0-54.0); Hemoglobin 14.8 g/dL (14.0-18.0); Immature Granulocyte Percent A 0.7 % (0.0-0.0); Lymphocytes Absolute Auto 1.64 K/mm3 (1.10-4.50); Lymphocytes Percent Auto 10.8 % (18.0-42.0); Mean Corpuscular Hemoglobin 28.4 pg (27.0-31.0); Mean Platelet Volume 8.6 fl (8.7-11.0); Monocytes Absolute Auto 1.15 K/mm3 (0.10-0.90); Monocytes Percent Auto 7.5 % (2.0-11.0); Neutrophils Absolute Auto 11.7 K/mm3 (1.7-7.2); Neutrophils Percent Auto 76.6 % (50.0-70.0); Platelet Count Result 344 K/mm3 (150-420); Red Blood Count 5.22 M/mm3 (4.70-6.10); Red Cell Distribution Width 14.5 % (11.6-14.4); White Blood Count 15.3 K/mm3 (4.8-10.8)
[2021-03-11 03:35] LABS: Partial Thromboplastin Time 30.3 SEC (23.90-30.70); Prothrombin Time 11.1 Seconds (9.50-12.10)
[2021-03-11 03:45] LABS: Alanine Aminotransferase 108 U/L (16-63); Albumin Level 3.5 g/dL (3.4-5.0); Alkaline Phosphatase 118 U/L (46-116); Anion Gap 12 mmol/L (8-16); Aspartate Amino Transferase 45 U/L (15-37); Bilirubin,Total 0.7 mg/dL (0.00-1.00); Blood Urea Nitrogen 23 mg/dL (7-18); Calcium 8.5 mg/dL (8.5-10.1); Carbon Dioxide 25 mmol/L (21-32); Chloride 104 mmol/L (98-108); Estimated CRCL calculation 96 ml/min; Estimated Glomerular Filt Rate > 60; Glucose 137 mg/dL (70-99); Lipase 151 U/L (73-393); NT Pro B Type Natriuretic Pept 172 pg/mL (0-125); Osmolality Calculated 297 mOsm/kg (285-295); Potassium 4.3 mmol/L (3.5-5.1); Sodium 141 mmol/L (136-145); Troponin I 8.8 ng/L (0.00-60.4)
[2021-03-11 03:47] LABS: D Dimer 0.84 mg/L (0.19-0.50)
[2021-03-11] MEDS: SODIUM CHLORIDE 0.9% IV 1,000 ML 150 ML IV CONT (03:49)
--- NOTE | 2021-03-11 03:50 | PC.NURSE ---
0347Loc from lab called with high critical D-dimer results of 0.84, I notified BRIAN Dailey and Dr. Nguyen with these results.
[2021-03-11 03:53] LABS: Add Urine Microscopic? YES; Appearance Urine Clear (Clear); Bilirubin Urine Negative (Negative); Blood Urine 1+ (Negative); Color Urine Light Yellow (Yellow); Glucose Urine UA Negative (Negative); Ketones Urine Negative (Negative); Leukocyte Esterase Ur Negative (Negative); Nitrate Urine Negative (Negative); Protein Urine Negative (Negative); Specific Grav Ur 1.025 (1.010-1.020); Urobilinogen Urine 0.2 mg/dL (0.2-1.0); pH Urine 5.5 (5.0-8.0)
--- NOTE | 2021-03-11 03:58 | ED.CHESTPAIN ---
HPI - Chest Pain General Chief Complaint: Chest Pain Stated Complaint: Chest Pain Source: patient and family Mode of arrival: ambulatory Limitations: no limitations History of Present Illness HPI narrative: this is a 65-year-old gentleman that presents with some chest tightness it started around midnight with shortness of breath and palpitations. The patient was recently diagnosed with a flutter OR on the 04 of March and was at [facility], with some attempted cardioversion that was unsuccessful and subsequently started on Eliquis and sotalol. Patient also recently had a history of left upper lobectomy on February 18. The patient presents with a chief complaint of chest pain / tightness 11/27 with no radiation with some shortness of breath and belching with no diaphoresis. Patient denies a smoking history denies family history of heart attacks. Patient with a flutter with a heart rate of 157, his blood pressure stable 141/90 and O2 saturations 96%, currently no fever or chills no abdominal pain no dysuria no diarrhea constipation. MD complaint: chest pain Onset (ago): hour(s) Timing of current episode: constant Onset: during rest Pain location: left chest Severity: moderate Quality: heaviness Exacerbating factors: other ( elevated heart rate) Context: recent illness and recent surgery Associated symptoms: nausea and palpitations Related Data Home Medications Medication Instructions Recorded Confirmed oxycodone 5 mg PO BID PRN 03/04/21 03/11/21 pravastatin 40 mg PO HS 03/04/21 03/11/21 Allergies Allergy/AdvReac Type Severity Reaction Status Date / Time Penicillins Allergy Severe RASH, Verified 03/04/21 00:05 SWELLING adhesive Allergy Unknown SKIN RASH/ Verified 03/04/21 00:05 BREAKDOWN bacitracin AdvReac Rash Verified 03/04/21 00:05 [From Neosporin ([id number])] neomycin AdvReac Rash Verified 03/04/21 00:05 [From Neosporin ([id number])] polymyxin B AdvReac Rash Verified 03/04/21 00:05 [From Neosporin ([id number])] Review of Systems Review of Systems: All systems reviewed & are unremarkable except as noted in HPI and below PMFSH Past Medical History Medical History Atypical chest pain Benign essential HTN Colon cancer screening Diverticulosis of colon (without mention of hemorrhage) Hyperlipidemia MDD (major depressive disorder) KERI (obstructive sleep apnea) Surgical History Surgical History History of bilateral knee replacement History of cholecystectomy History of fundoplication Family History Family History Mother Family history of lung cancer Bone cancer Grandparent Stomach cancer Lung cancer Father Cirrhosis Social History Social History Social History: the patient is a lifelong nonsmoker. He socially drinks and averages maybe 6 beers a week. 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 He would like to be a full code and designates his , Patricia, as his surrogate decision maker Smoking status: Never smoker Second hand tobacco smoke exposure: Yes Alcohol intake: never Drinks per week: 6 Substance use: never Substance use type: does not use Gender identity (if verbalized by the patient): Male Sexual Orientation (if Verbalized by the Patient): Straight or Heterosexual Spiritual care concerns: No Exam Const: General: no acute distress Orientation/consciousness: patient oriented x3 HENMT: Head: normal to inspection Eyes: Conjunctivae: conjunctivae normal Pupils: Equal, round and reactive pupils present EOM: EOMs intact bilaterally Direct Ophthalmoscopy: no photophobia Neck: Neck: normal visual inspection, no lymphadenopathy and no meningeal signs Chest: Chest palpation & inspection: normal inspec
[2021-03-11 03:59] LABS: Bacteria Urine None seen /hpf; Squamous Epithelial Cell Urine None seen /hpf (Few); WBC Urine 0-3 /hpf (0-3)
[2021-03-11 04:38] LABS: SARS-CoV-2 RNA PCR Negative (Negative)
[2021-03-11] MEDS: SODIUM CHLORIDE 0.9% IV 1,000 ML 150 ML (05:00)
--- NOTE | 2021-03-11 05:45 | PC.NURSE ---
Patient admitted to room 204 per w/c from ER. Patient is alertand oreinted times 4, refused O2 at this time, spo2 95 %, oriented to room and call light, ambulates independently.
[2021-03-11] MEDS: MORPHINE SULFATE (*CRX) 4 MG/ML INJ IM (06:05)
[2021-03-11] MEDS: oxyCODONE HCL (*CRX) 5 MG TAB IR PO (06:09)
--- NOTE | 2021-03-11 06:28 | PC.NURSE ---
Trying to give pain assessment and mar recorded another administration that was not given for morphine.
--- NOTE | 2021-03-11 07:37 | PM.TDS ---
Transfer Discharge Sum: Prov Provider Date of admission: 03/11/21 05:03 <ANA LUISA Corey - Last Filed: 03/11/21 08:01> Primary care physician: Guido Treviño MD <ANA LUISA Corey - Last Filed: 03/11/21 08:01> Admitting clinician: Francesco Nguyen MD <ANAL UISA Corey - Last Filed: 03/11/21 08:01> DS: Admitting Diagnosis Discharge Date 03/11/21 <ANA LUISA Corey - Last Filed: 03/11/21 08:01> Admitting Diagnosis CP shortness of breath <ANA LUISA Corey - Last Filed: 03/11/21 08:01> DS: Discharge Diagnosis Discharge Diagnosis (1) Chest pain: Qualifiers: Chest pain type: unspecified Qualified Code(s): R07.9 - Chest pain, unspecified <ANA LUISA Corey - Last Filed: 03/11/21 08:01> Code(s): R07.9 - Chest pain, unspecified <ANA LUISA Corey - Last Filed: 03/11/21 08:01> Status: Acute <ANA LUISA Corey - Last Filed: 03/11/21 08:01> Assessment and Plan: Possibly secondary to moderate pleural effusion and a flutter EK G indicates a flutter with RVR heart rates in the 150s Patient given Cardizem a total of 200 mg this hospital stay Troponin is within normal limits D-dimer elevated <ANA LUISA Corey - Last Filed: 03/11/21 08:01> (2) Atrial fibrillation and flutter: Code(s): I48.91 - Unspecified atrial fibrillation; I48.92 - Unspecified atrial flutter <ANA LUISA Corey - Last Filed: 03/11/21 08:01> Status: Acute <ANA LUISA Corey - Last Filed: 03/11/21 08:01> Assessment and Plan: Patient recently diagnosed with new onset of a flutter with RVR Patient cardioverted on 02/24/2021 and placed on Eliquis and sotalol Patient given a total of 200 mg of Cardizem this hospital stay Patient currently in a flutter with a controlled rate <ANA LUISA Corey - Last Filed: 03/11/21 08:01> (3) Tachycardia: Code(s): R00.0 - Tachycardia, unspecified <ANA LUISA Corey - Last Filed: 03/11/21 08:01> Status: Acute <ANA LUISA Corey - Last Filed: 03/11/21 08:01> Assessment and Plan: Refer to a flutter A. fib <ANA LUISA Corey - Last Filed: 03/11/21 08:01> (4) Systolic dysfunction without heart failure: Code(s): I51.89 - Other ill-defined heart diseases <ANA LUISA Corey - Last Filed: 03/11/21 08:01> Status: Acute <ANA LUISA Corey - Last Filed: 03/11/21 08:01> (5) Lung cancer: Code(s): C34.90 - Malignant neoplasm of unspecified part of unspecified bronchus or lung <ANA LUISA Corey - Last Filed: 03/11/21 08:01> Status: Acute <ANA LUISA Corey - Last Filed: 03/11/21 08:01> Assessment and Plan: Laminectomy completed on February [address] Lucero thoracic surgeon Patient with chest to [facility] <ANA LUISA Corey - Last Filed: 03/11/21 08:01> (6) Leukocytosis: Code(s): D72.829 - Elevated white blood cell count, unspecified <ANA LUISA Corey - Last Filed: 03/11/21 08:01> Status: Acute <ANA LUISA Corey - Last Filed: 03/11/21 08:01> (7) Pneumothorax: Code(s): J93.9 - Pneumothorax, unspecified <ANA LUISA Corey - Last Filed: 03/11/21 08:01> Status: Acute <ANA LUISA Corey - Last Filed: 03/11/21 08:01> Assessment and Plan: CTA indicates moderate pleural effusion to the left side Patient was transferred to [facility] <ANA LUISA Corey - Last Filed: 03/11/21 08:01> (8) LUKAS (generalized anxiety disorder): Code(s): F41.1 - Generalized anxiety disorder <ANA LUISA Corey - Last Filed: 03/11/21 08:01> Status: Acute <ANA LUISA Corey - Last Filed: 03/11/21 08:01> Transfer Discharge Sum: Med Medications Active and Home Medications: Home
--- OUTSIDE RECORDS SUMMARY | 2021-03-11 07:40 | XMS_ITS ---
:1955 Author Care Team Providers Name Role Phone DR. CHARLI BRITT Primary Care Provider Unavailable DR. CHARLI BRITT Referring Provider [phone] Allergies None recorded. Medications Name Status Start Date Stop Date ? ? amlodipine 5 mg tablet Active ? Not avail able Axiron 30 mg/actuation (1.5 mL) transderm Active ? Not available solution in metered pump azithromycin 250 mg tablet Active ? Not a vailable benzonatate 100 mg capsule Active ? Not a vailable citalopram 40 mg tablet Active ? Not avai lable lisinopril 40 mg tablet Active ? Not avai lable lorazepam 0.5 mg tablet Active ? Not avai lable methylprednisolone 4 mg tablets in a dose Active ? Not available pack metoprolol tartrate 50 mg tablet Active ? Not available metronidazole 0.75 % topical gel Active ? Not available pravastatin 40 mg tablet Active ? Not cristopher ilable sildenafil 100 mg tablet Active ? Not cristopher ilable TK 1 T PO QD 1 HOUR B SEXUAL ACTIVITY PRN testosterone cypionate 200 mg/mL Active ? Not available intramuscular oil triamcinolone acetonide 0.1 % topical Active ? Not available cream Problems Name Status Onset Date Source ? Implantation of Joint Prosthesis Active ? ? Knee Pain Active ? ? Procedure on Joint Active ? ? Procedures None recorded. Results Lab Results None recorded. Past Encounters None recorded. Social History None recorded. Vaccine List None recorded. Plan of Care
[2021-03-11] MEDS: MORPHINE SULFATE (*CRX) 2 MG/ML INJ IV PUSH (08:10)
[2021-03-11] MEDS: dilTIAZem HCL CD 180 MG CAP.ER.24H PO (08:11)
[2021-03-11] MEDS: APIXABAN 2.5 MG TABLET 5 MG PO (08:11)
[2021-03-11] MEDS: PANTOPRAZOLE 40 MG TABLET PO (08:11)
[2021-03-11] MEDS: lisinopriL 20 MG TABLET 40 MG PO (08:11)
[2021-03-11] MEDS: FUROSEMIDE INJ 100 MG/10 ML VIAL 80 MG IV PUSH (09:17)
[2021-03-11] MEDS: dilTIAZem HCl INJ 25 MG/5 ML VIAL 10 MG IV PUSH (09:17)
--- NOTE | 2021-03-11 10:15 | PC.NURSE ---
[place]
--- NOTE | 2021-03-11 10:45 | PC.NURSE ---
Called report to [facility]. Gave report to Nikki TORRES. Verbal bedside report given to EMS crew. All questions answered. Charge nurse notified pt's of transfer.
== END 2021-03-11 10:40 | disposition short-term general hospital (02) | DRG 309 ==
LOC: CHSED 04:46 → CHS2ND 07:37
PROVIDERS: Admitting Provider Emergency Medicine; Emergency Provider Emergency Medicine; PCP Family Medicine; Visit Provider Emergency Medicine
DX: I48.91 Unspecified atrial fibrillation (principal); I48.92 Unspecified atrial flutter; Z79.01 Long term (current) use of anticoagulants; I10 Essential (primary) hypertension; K57.30 Diverticulosis of large intestine without perforation or abscess without bleeding; E78.5 Hyperlipidemia, unspecified; F32.9 Major depressive disorder, single episode, unspecified; G47.33 Obstructive sleep apnea (adult) (pediatric); Z96.653 Presence of artificial knee joint, bilateral; Z20.822 Contact with and (suspected) exposure to COVID-19; Z90.49 Acquired absence of other specified parts of digestive tract; J93.9 Pneumothorax, unspecified; C34.12 Malignant neoplasm of upper lobe, left bronchus or lung; F41.1 Generalized anxiety disorder; I51.89 Other ill-defined heart diseases
CPT/HCPCS: 36415; 71045; 71275; 80053; 81001; 83690; 83880; 84484; 85025; 85380; 85610; 85730; 93005; 96361; 96374; 99285; A9270; C9803; J1940; J2270; J7030; Q9967; U0003; U0005

== ENCOUNTER → 2021-05-27 10:48 | Outpatient (CLI) | payer OTHER, SELFPAY ==
--- NOTE | ~2021-05-27 | XR_ITS ---
EXAMINATION: XR ribs BI 3V w CXR 2V EXAM DATE: 05/27/2021 11:43 INDICATION: C34.90 - Malignant neoplasm of unspecified part of unspec... TECHNIQUE: Frontal projection of the upper left ribs, frontal projection of the lower left ribs, obli que projection of the left ribs. Frontal projection of the upper right ribs, frontal projection of t he lower right ribs, oblique projection of the right ribs,frontal and lateral chest x-ray(s) for int erpretation. There is no prior study for comparison. FINDINGS: There is left 5th rib fracture posterolaterally which could be acute. There is a defect in the posterior aspect of the 6th rib, probably surgical defect. There is a left 6th rib fracture later ally, appears more likely chronic. No right rib fractures identified. There are no osteoblastic or o steolytic lesions identified. Some left-sided volume loss which could indicate partial pneumonectomy, correlate with surgical history. Cardiomediastinal silhouette is normal. There is no pneumothorax marks spected. There are no pleural effusions. There are cholecystectomy clips. IMPRESSION: Left 5th rib fracture which could be acute. Other findings appear chronic. Reviewed, dictated and finalized at location A. 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
== END ==
PROVIDERS: PCP Family Medicine; Visit Provider Physician Assistant
DX: C34.90 Malignant neoplasm of unspecified part of unspecified bronchus or lung (principal); R07.89 Other chest pain; S22.32XA Fracture of one rib, left side, initial encounter for closed fracture; X58.XXXA Exposure to other specified factors, initial encounter
CPT/HCPCS: 71046; 71110

== ENCOUNTER → 2021-06-16 08:16 | Outpatient (CLI) | payer OTHER, SELFPAY ==
[2021-06-16 18:23] LABS: SARS-CoV-2 RNA PCR Negative
== END ==
PROVIDERS: PCP Family Medicine; Visit Provider Physician Assistant
DX: R05.9 Cough, unspecified (principal); R68.89 Other general symptoms and signs; Z20.822 Contact with and (suspected) exposure to COVID-19
CPT/HCPCS: C9803; U0003; U0005

== ENCOUNTER → 2021-06-16 09:36 | Outpatient (CLI) | payer OTHER, SELFPAY ==
--- NOTE | ~2021-06-16 | XR_ITS ---
EXAMINATION: XR ribs BI 3V w CXR 2V EXAM DATE: 06/16/2021 10:23 INDICATION: C34.90 - Malignant neoplasm of unspecified part of unspec.... Left sided chest pain, sob , wheezing x3 days. prev 4th or 5th rib fx. surg-left upper lobectomy 02-18-21, prev CA; cholecystecto my. TECHNIQUE: Frontal projection of the upper left ribs, frontal projection of the lower left ribs, obli que projection of the left ribs. Frontal projection of the upper right ribs, frontal projection of t he lower right ribs, oblique projection of the right ribs, frontal and lateral chest x-ray(s) for int erpretation. Comparison is made to prior examination from 05/27/2021. FINDINGS: Previous study earlier this month reported left 5th rib fracture which could be acute. This is reidentified, position appears unchanged. There is a left 6th rib surgical defect posteriorly and an old left 6th rib fracture laterally. Left-sided volume loss likely sequela from partial pneumonec kaya. No right rib fractures identified. No expansile or osteoblastic. There are cholecystectomy clip s. Left basilar linear scarring/atelectasis unchanged. Cardiomediastinal silhouette is normal. There is no pneumothorax suspected. IMPRESSION: 1. Acute to subacute left 5th rib fracture posterolaterally. 2. No pneumothorax or right rib abnormality. Reviewed, dictated and finalized at location A. BOSS
== END ==
PROVIDERS: PCP Family Medicine; Visit Provider Physician Assistant
DX: C34.90 Malignant neoplasm of unspecified part of unspecified bronchus or lung (principal); Z90.49 Acquired absence of other specified parts of digestive tract
CPT/HCPCS: 71046; 71110

== ENCOUNTER 2021-08-19 13:48 | Outpatient (CLI) | payer MEDICARE, SELFPAY ==
--- NOTE | ~2021-08-19 | XR_ITS ---
XR chest 2V DATE: 08/19/2021 14:06 INDICATION: Status post left lobectomy for lung cancer TECHNIQUE: PA and lateral views COMPARISON: 03/11/2021 CT pulmonary scan 06/16/2021 PA and lateral chest FINDINGS: Status post left thoracotomy and partial left lung resection. No pulmonary infiltrate or consolidation, pleural effusion or pulmonary vascular congestion or pneumo thorax is detected. There is minimal thoracic levoscoliosis. There is degenerative spurring of the thoracic spine. IMPRESSION: Status post left thoracotomy and partial left pneumonectomy No active cardiopulmonary disease Reviewed, dictated and finalized at location A.
== END 2021-08-19 13:49 | disposition home or self-care (01) ==
PROVIDERS: PCP Family Medicine; Visit Provider Physician Assistant
DX: C34.90 Malignant neoplasm of unspecified part of unspecified bronchus or lung (principal); R05.9 Cough, unspecified; Z98.890 Other specified postprocedural states
CPT/HCPCS: 71046

== ENCOUNTER 2021-09-20 08:59 | Outpatient (CLI) | payer MEDICARE, SELFPAY | END 2021-09-20 09:00 | disposition home or self-care (01) | LOC: CHSOUTPT 09:05 | PROVIDERS: PCP Family Medicine; Visit Provider Specialist | DX: L91.8 Other hypertrophic disorders of the skin (principal) | CPT/HCPCS: 88305 ==

== ENCOUNTER → 2021-11-10 13:27 | Outpatient (CLI) | payer MEDICARE, SELFPAY ==
--- NOTE | ~2021-11-10 | XR_ITS ---
XR chest 2V DATE: 11/10/2021 14:27 INDICATION: Cough TECHNIQUE: 2 views COMPARISON: 08/19/2021 2 view chest 03/11/2021 CTA chest FINDINGS: Partial resection of left posterior sixth rib, elevation of left hilum and left lung volume loss consistent with history of left upper lobectomy. No pulmonary infiltrate or consolidation, pleural effusion or pulmonary vascular congestion or pneumo thorax is detected. Heart size is normal. Degenerative spurring of the thoracic spine. IMPRESSION: Status post left thoracotomy and left upper lobectomy No active pulmonary disease Reviewed, dictated and finalized at location A.
== END ==
PROVIDERS: PCP Family Medicine; Visit Provider Family Medicine
DX: R05.9 Cough, unspecified (principal); C34.90 Malignant neoplasm of unspecified part of unspecified bronchus or lung
CPT/HCPCS: 71046

== ENCOUNTER → 2021-11-12 00:20 | Outpatient (CLI) | payer MEDICARE, SELFPAY ==
[2021-11-12 11:50] LABS: Influenza A QL RT-PCR Negative (Negative); Influenza B QL RT-PCR Negative (Negative); SARS-CoV-2 RNA PCR Negative
== END ==
PROVIDERS: PCP Physician Assistant; Visit Provider Physician Assistant
DX: R68.89 Other general symptoms and signs (principal); Z20.822 Contact with and (suspected) exposure to COVID-19
CPT/HCPCS: 87502; C9803; U0003; U0005

== ENCOUNTER 2022-03-31 11:01 | Outpatient (CLI) | payer MEDICARE, SELFPAY ==
--- NOTE | ~2022-03-31 | XR_ITS ---
XR chest 2V DATE: 03/31/2022 11:23 INDICATION: Cough for one week. History of left upper lobectomy for lung cancer. TECHNIQUE: PA and lateral views COMPARISON: 11/10/2021 2 view chest FINDINGS: Normal heart size. The left hilum is elevated consistent with history of left upper lobectomy, with postoperative change of the left sixth rib. No pulmonary infiltrate or consolidation, pleural effusion or pulmonary vascular congestion or pneumo thorax. Minimal levoscoliosis and moderate degenerative spurring of the thoracic spine. No suspicious osteoly tic or osteoblastic lesions are noted. IMPRESSION: Status post left upper lobectomy No active cardiac pulmonary disease or significant change since 11/10/2021 Reviewed, dictated and finalized at location A. 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
== END 2022-03-31 11:02 | disposition home or self-care (01) ==
PROVIDERS: PCP Family Medicine; Visit Provider Physician Assistant
DX: R05.9 Cough, unspecified (principal); R09.89 Other specified symptoms and signs involving the circulatory and respiratory systems
CPT/HCPCS: 71046

== ENCOUNTER → 2023-02-26 12:17 | Outpatient (CLI) | payer MEDICARE, SELFPAY ==
--- NOTE | ~2023-02-26 | XR_ITS ---
EXAMINATION: XR chest 2V 02/26/2023 13:35 INDICATION: Wheezing and cough PROCEDURE: 2 view chest COMPARISON: 06/16/2021 FINDINGS: The lungs are clear. The cardiomediastinal silhouette is within normal limits. There are no pleural effusions. There is no pneumothorax suspected. There are healed left rib fractures. IMPRESSION: 1: NO ACUTE CARDIOPULMONARY DISEASE. Reviewed, dictated and finalized at location B.
== END ==
PROVIDERS: PCP Family Medicine; Visit Provider Physician Assistant
DX: R06.2 Wheezing (principal)
CPT/HCPCS: 71046

== ENCOUNTER 2023-03-06 16:37 | Outpatient (CLI) | payer MEDICARE, SELFPAY | END 2023-03-06 16:38 | disposition home or self-care (01) | LOC: CHSLAB 16:41 | PROVIDERS: PCP Family Medicine; Visit Provider Specialist | DX: L91.8 Other hypertrophic disorders of the skin (principal) | CPT/HCPCS: 88304; 88305 ==

== ENCOUNTER 2023-10-10 09:13 | Outpatient (CLI) | payer MEDICARE, SELFPAY ==
--- NOTE | ~2023-10-10 | XR_ITS ---
EXAMINATION: XR lumbar spine 2-3V DATE: 10/10/2023 09:28 INDICATION: Low back pain, unspecified. TECHNIQUE: 3 views of lumbar spine were obtained. COMPARISON: None. FINDINGS: There is 9 degrees levocurvature of lumbar spine. There is 3 mm anterolisthesis of L4 on L5 . Vertebral body heights are normal. There is mildly decreased disc height at L1-L2, L2-L3, and L4-L5 and severely decreased disc height at L5-S1. There is multilevel severe facet joint osteoarthritis, worse in lower lumbar spine. Surgical clips in the right upper quadrant are likely from cholecystecto my. IMPRESSION: 1. Severe lumbar spondylosis. Reviewed, dictated and finalized at location A.
== END 2023-10-10 09:14 ==
LOC: MICIMG 09:15
PROVIDERS: PCP Family Medicine; Visit Provider Family Medicine
DX: M43.06 Spondylolysis, lumbar region (principal)
CPT/HCPCS: 72100

== ENCOUNTER 2023-11-13 09:31 | Outpatient (RCR) | payer MEDICARE, SELFPAY ==
--- NOTE | 2023-11-13 11:10 | OPREHPOC ---
Outpatient Therapy Plan of Care This is a Multidisciplinary Plan of Care that may contain components documented by all disciplines (PT, OT, and ST.) PT Problem 1 PT Problem #1 Knowledge Deficit PT Goal 1 Goal 1. independent and compliant with HEP Target Visit 6 PT Problem 2 PT Problem #2 Pain PT Goal 1 Goal 1. decrease pain at worst to 4/10 or less in the lower back Target Visit 12 PT Problem 3 PT Problem #3 Impaired Range of Motion PT Goal 1 Goal 1. improve active lumbar flexion to floor 2. improve active lumbar extension to 30 degrees or better 3. improve bilateral active lumbar side bending to 40 degrees Target Visit 12 PT Problem 4 PT Problem #4 Impaired Strength PT Goal 1 Goal 1. improve core strength to 4-/5 or better 2. improve bilateral hip strength to 4+/5 or better overall Target Visit 12 PT Problem 5 PT Problem #5 Impaired Functional Mobil PT Goal 1 Goal 1. patient to tolerate 1 hours worth or more of activity in the yard and home without increased lower back pain 2. oswestry to display 20% or less functional deficits 3. patient to squat and lift with safe mechanics a box of 25lbs or greater without increased pain x10 reps Target Visit 12
--- NOTE | 2023-11-13 11:10 | PTOPEVAL1 ---
Assessment and note entered by JT File, PT Evaluation Information Assessment Status Evaluation Diagnosis chronic low back pain Onset 10/23/23 Subjective Information patient reports he has pain in the back when waking in the mornings. he reports it is not every morning, but most mornings. he reports he has difficulty straightening up for a good hour or so. he reports his lower back will also hurt. he reports as the day progresses, he will loosen up. he reports he is limited in how much bending activities he can perform due to tightening up and hurting more. he reports picking up items from the floor is difficult for him, as well as, staying in a slightly flexed position such as when raking is difficult. he reports he also has difficulty with prolonged sitting. he reports he has had xrays of the lower back that he reports shows DDD. he reports he was prescribed no new meds. Reported Pain Level Pain Score 6: Self Report Additional Pain Score Comments no radiation down the legs. Assessment PT Clinical Summary mr. loera is a 68 yo man who presents to skilled PT services for evaluation and treatment of lower back pain. he presents today with deficits in lumbar arom, weakness in the hips/core, tight hip mm's, and deficits in posture/activity endurance. he displays signs and symptoms consistent with a lumbar stenosis/DDD. continued skilled PT is indicated to address his objective/functional findings to improve his quality of life and return to prior level activity performance. Plan of Care Interventions Electrical Stimulation,Gait Training,Hot Pack/Cold Pack,Manual Therapy,Neuro Re-education,Patient/ Caregiver Educati,Therapeutic Activities, Therapeutic Exercise PT Services Indicated Yes Treatment Frequency and 3x weekly for 12 visits Duration These treatments will address the objective and functional deficits as defined above. The patient will be advanced safely and appropriately in order for the patient to progress towards his/her prior level of function. Additional exercises will be introduced and as well as a comprehensive home exercise program upon discharge, if needed, ?to ensure carryover of functional gains achieved in the clinic. This treatment plan has been reviewed and agreement upon by the patient.
== END 2023-11-29 07:00 | disposition home or self-care (01) ==
LOC: CHSPT 09:31
PROVIDERS: Visit Provider Family Medicine
DX: M54.50 Low back pain, unspecified (principal); M47.816 Spondylosis without myelopathy or radiculopathy, lumbar region
CPT/HCPCS: 97014; 97110; 97140; 97161; G0283

== ENCOUNTER 2024-03-27 10:52 | Outpatient (CLI) | payer MEDICARE, SELFPAY ==
[2024-03-27 11:57] LABS: Influenza A QL RT-PCR Negative (Negative); Influenza B QL RT-PCR Negative (Negative); RSV RNA, RT-PCR Negative (Negative); SARS-CoV-2 RNA PCR Positive (Negative)
== END 2024-03-27 10:53 | disposition home or self-care (01) ==
LOC: ANHLAB 10:53
PROVIDERS: PCP Family Medicine; Visit Provider Physician Assistant Medical
DX: R05.9 Cough, unspecified (principal); R50.9 Fever, unspecified; Z20.822 Contact with and (suspected) exposure to COVID-19
CPT/HCPCS: 87637

== ENCOUNTER 2024-08-25 13:40 | Outpatient (CLI) | payer MEDICARE, SELFPAY ==
--- NOTE | ~2024-08-25 | CT_ITS ---
CT Scan of the Chest without Contrast: Clinical Indication: Neuroendocrine carcinoma of lung Technique: Contiguous sections were acquired throughout the chest without intravenous contrast. Dose reduction technique was used on this scan by utilizing automated exposure control and iterative recon struction technique. The dose-length product (DLP) was 757.64 mGy-cm. COMPARISON: 03/11/2021 Findings: There is no evidence of any significant mediastinal, hilar or axillary lymphadenopathy. Coronary tin ry calcifications are present. There is no evidence of pleural or pericardial effusion. Status post left upper lobectomy. There is mild postoperative scarring/distortion in the left lung. R ight lung clear. Images through the upper abdomen reveal cholecystectomy clips and stable 2.3 cm left adrenal nodule. Impression: No evidence for active malignancy or metastatic disease. Status post left upper lobectomy. Stable 2.3 cm left adrenal nodule, likely adenoma. Reviewed, dictated and finalized at [facility]. Impression: No evidence for active malignancy or metastatic disease. Status post left upper lobectomy. Stable 2.3 cm left adrenal nodule, likely adenoma.
== END 2024-08-25 13:41 | disposition home or self-care (01) ==
LOC: MICIMG 13:43
PROVIDERS: PCP Family Medicine
DX: D35.02 Benign neoplasm of left adrenal gland (principal); Z90.2 Acquired absence of lung [part of]; C7A.8 Other malignant neuroendocrine tumors
CPT/HCPCS: 71250